=== PATIENT | female | born 1995 | race Caucasian/White ===

== ENCOUNTER 2018-08-26 21:18 | Emergency (ER) | payer MEDICAID, SELFPAY ==
[2018-08-26 21:24] VITALS: BP 138/85; PULSE 100; RESP 16; TEMP 36.7; O2SAT 100
--- NOTE | 2018-08-26 21:30 | W.ED.GENAD ---
Discharge Plan Disposition Patient Disposition: HOME Condition: Good Discharge Details Chief Complaint: DentalOral Clinical Impression: Abscess, dental Primary Care Provider: Navi Bello ED Provider: Navi Bosch [place] Meds and New Rx's Prescriptions: Continued fluoxetine [Prozac] 40 mg Capsule 40 mg PO DAILY RF: 0 ibuprofen 800 mg Tablet 800 mg PO TID-QID PRNRF: 0 clindamycin HCl 150 mg Capsule 450 mg PO TID Qty: 45 RF: 0 Discontinued clindamycin HCl 150 mg Capsule 150 mg PO QID RF: 0 Discharge Instructions Instructions: Dental Abscess (ED) Additional Instructions: Please take 1 g of Tylenol alternating with 600-800 mg of ibuprofen every 4 hours. Take antibiotic 3 tablets (450 mg ) 3 times a day. Contact your oral surgeon on Wednesday to discuss your procedure scheduled for Wednesday. Return to ED over the weekend if you spike any fevers, have increasing facial pain or swelling, difficulty breathing, inability to swallow. Medical Decision Making Patient here with dental abscess that has formed gingival abscess and facial swelling. She is afebrile. She is not in distress but is uncomfortable. Discussed attempting numbing the area with topical benzocaine, needle aspiration of abscess as well as dental block with bupivacaine. She is agreeable to this. Benzocaine topical applied. Attempt at aspiration of abscess unsuccessful because of pain. Multiple attempts at dental block also unsuccessful due to pain and patient not tolerating. Discussed giving her a dose of IM morphine to help with pain and anxiety. She agreed to this. More of the benzocaine topical applied. Another attempt at dental block with bupivacaine done. This time able to get about 1/2 cc in. After waiting approximately 15 minutes attempted further block so that we could drain abscess. Patient unable to tolerate and ultimately refused further attempts at dental block or abscess drainage. We discussed risk of not draining abscess. There is spontaneous drainage from the tooth socket. However, there does continue to be a pocket of fluctuance in the upper gingival area. Hopefully, this will drain on its own as she at this point will not tolerate further attempts at intervention. Will increase her clindamycin from 150 mg every 6 hours to 450 mg 3 times a day. Use acetaminophen alternating with ibuprofen for pain. Contact her oral surgeon Wednesday for further instructions on whether procedure can occur Wednesday or not. Return to ED for spiking fevers, increasing pain and swelling of the face, difficulty breathing, inability to swallow. HPI General Mode of arrival: ambulatory. Date/Time Provider Initiated Documentation: 08/26/18 21:28. Limitations to Documentation: no limitations. Information obtained by: patient. HPI Narrative: Patient presents with increasing facial pain, gum swelling related to dental infection. She was seen at [facility] yesterday and started on clindamycin. She has subsequently developed an abscess in the upper right maxillary area. She has pain up into her face and nose. She is due to have surgery next week to have all of her teeth removed. She developed this infection prior to that happening and is concerned that she is not going to be able to have the procedure. She came here for reevaluation and abscess drainage. Related Data Home Medications Medication Instructions Recorded Confirmed clindamycin HCl 450 mg PO TID #45 cap 08/26/18 fluoxetine [Prozac] 40 mg PO DAILY 08/26/18 08/26/18 ibuprofen 800 mg PO TID-QID PRN 08/26/18 08/26/18 Previous Rx's Medication Instructions Recorded clindamycin HCl 450 mg PO TID #45 cap 08/26/18 Allergies Allergy/AdvReac Type Severity Reaction Status Date / Time No Known Allergies Allergy Unverified 08/26/18 21:26 General Stated Complaint: DentalOral DEQUAN: 4 Review of Systems Review of Systems As documented in HPI otherwise negative as below. Const: no fever, chills, weakness Resp: no cough, SOB, pleuritic pain CV: no CP, diaphoresis, edema, syncope GI: no abdominal pain, nausea, vomiting, diarrhea Neuro: no headache, numbness, focal weakness, confusion [facility] Medical History Dental abscess (Acute) Anxiety (Chronic) Surgical History History of placement of ear tubes (Acute) History of tubal ligation (Chronic) Social History Smoking/Tobacco Use Status: Current every day Alcohol Intake: current Drug use: Daily Substance use type: marijuana Additional Social history: pt is not alone to assess privately Exam Const General: cooperative and no acute distress Orientation: alert and oriented x3 HENMT Head: normocephalic and atraumatic General nose exam: external nose normal Face and sinus: no erythema, no fluctuance, no sinus tenderness and tenderness on the right maxilla (with associated swelling) Teeth and gingiva: gingiva abnormal with purulent discharge (abscess with drainage right upper incisor/lateral incisor area) and poor dentition Throat: posterior oropharynx normal Neck Neck: trachea midline, supple and no anterior neck swelling Skin General skin exam: no erythema Course Vital Signs Temperature 98.1 F 08/26/18 21:24 Pulse 100 H 08/26/18 21:24 Respiratory Rate 16 08/26/18 21:24 Blood Pressure 138/85 08/26/18 21:24 Pulse Oximetry 100 08/26/18 21:24 Temperature 98.1 F 08/26/18 21:24 Temperature Source Skin 08/26/18 21:24 Pulse 100 H 08/26/18 21:24 Respiratory Rate 16 08/26/18 21:24 Respiratory Effort Non-Labored 08/26/18 21:25 Blood Pressure 138/85 08/26/18 21:24 Pulse Oximetry 100 08/26/18 21:24 Pain Level 10 08/26/18 21:24
--- NOTE | 2018-08-26 21:34 | ED.GENADUL_ITS ---
Discharge Plan Disposition Patient Disposition: HOME Condition: Good Discharge Details Chief Complaint: DentalOral Clinical Impression: Abscess, dental Primary Care Provider: Navi Bello ED Provider: Navi Bosch [place] Meds and New Rx's Prescriptions: Continued fluoxetine [Prozac] 40 mg Capsule 40 mg PO DAILY RF: 0 ibuprofen 800 mg Tablet 800 mg PO TID-QID PRNRF: 0 clindamycin HCl 150 mg Capsule 450 mg PO TID Qty: 45 RF: 0 Discontinued clindamycin HCl 150 mg Capsule 150 mg PO QID RF: 0 Discharge Instructions Instructions: Dental Abscess (ED) Additional Instructions: Please take 1 g of Tylenol alternating with 600-800 mg of ibuprofen every 4 hours. Take antibiotic 3 tablets (450 mg ) 3 times a day. Contact your oral surgeon on Wednesday to discuss your procedure scheduled for Wednesday. Return to ED over the weekend if you spike any fevers, have increasing facial pain or swelling, difficulty breathing, inability to swallow. Medical Decision Making Patient here with dental abscess that has formed gingival abscess and facial swelling. She is afebrile. She is not in distress but is uncomfortable. Discussed attempting numbing the area with topical benzocaine, needle aspiration of abscess as well as dental block with bupivacaine. She is agreeable to this. Benzocaine topical applied. Attempt at aspiration of abscess unsuccessful because of pain. Multiple attempts at dental block also unsuccessful due to pain and patient not tolerating. Discussed giving her a dose of IM morphine to help with pain and anxiety. She agreed to this. More of the benzocaine topical applied. Another attempt at dental block with bupivacaine done. This time able to get about 1/2 cc in. After waiting approximately 15 minutes attempted further block so that we could drain abscess. Patient unable to tolerate and ultimately refused further attempts at dental block or abscess drainage. We discussed risk of not draining abscess. There is spontaneous drainage from the tooth socket. However, there does continue to be a pocket of fluctuance in the upper gingival area. Hopefully, this will drain on its own as she at this point will not tolerate further attempts at intervention. Will increase her clindamycin from 150 mg every 6 hours to 450 mg 3 times a day. Use acetaminophen alternating with ibuprofen for pain. Contact her oral surgeon Wednesday for further instructions on whether procedure can occur Wednesday or not. Return to ED for spiking fevers, increasing pain and swelling of the face, difficulty breathing, inability to swallow. HPI General Mode of arrival: ambulatory . Date/Time Provider Initiated Documentation: 08/26/18 21:28 . Limitations to Documentation: no limitations . Information obtained by: patient . HPI Narrative: Patient presents with increasing facial pain, gum swelling related to dental infection. She was seen at [facility] yesterday and started on clindamycin. She has subsequently developed an abscess in the upper right maxillary area. She has pain up into her face and nose. She is due to have surgery next week to have all of her teeth removed. She developed this infection prior to that happening and is concerned that she is not going to be able to have the procedure. She came here for reevaluation and abscess drainage. Related Data Home Medications Medication Instructions Recorded Confirmed clindamycin HCl 450 mg PO TID #45 cap 08/26/18 fluoxetine [Prozac] 40 mg PO DAILY 08/26/18 08/26/18 ibuprofen 800 mg PO TID-QID PRN 08/26/18 08/26/18 Previous Rx's Medication Instructions Recorded clindamycin HCl 450 mg PO TID #45 cap 08/26/18 Allergies Allergy/AdvReac Type Severity Reaction Status Date / Time No Known Allergies Allergy Unverified 08/26/18 21:26 General Stated Complaint: DentalOral DEQUAN: 4 Review of Systems Review of Systems As documented in HPI otherwise negative as below. Const: no fever, chills, weakness Resp: no cough, SOB, pleuritic pain CV: no CP, diaphoresis, edema, syncope GI: no abdominal pain, nausea, vomiting, diarrhea Neuro: no headache, numbness, focal weakness, confusion [facility] Medical History Dental abscess (Acute) Anxiety (Chronic) Surgical History History of placement of ear tubes (Acute) History of tubal ligation (Chronic) Social History Smoking/Tobacco Use Status: Current every day Alcohol Intake: current Drug use: Daily Substance use type: marijuana Additional Social history: pt is not alone to assess privately Exam Const General: cooperative and no acute distress Orientation: alert and oriented x3 HENMT Head: normocephalic and atraumatic General nose exam: external nose normal Face and sinus: no erythema, no fluctuance, no sinus tenderness and tenderness on the right maxilla (with associated swelling) Teeth and gingiva: gingiva abnormal with purulent discharge (abscess with drainage right upper incisor/lateral incisor area) and poor dentition Throat: posterior oropharynx normal Neck Neck: trachea midline, supple and no anterior neck swelling Skin General skin exam: no erythema Course Vital Signs Temperature 98.1 F 08/26/18 21:24 Pulse 100 H 08/26/18 21:24 Respiratory Rate 16 08/26/18 21:24 Blood Pressure 138/85 08/26/18 21:24 Pulse Oximetry 100 08/26/18 21:24 Temperature 98.1 F 08/26/18 21:24 Temperature Source Skin 08/26/18 21:24 Pulse 100 H 08/26/18 21:24 Respiratory Rate 16 08/26/18 21:24 Respiratory Effort Non-Labored 08/26/18 21:25 Blood Pressure 138/85 08/26/18 21:24 Pulse Oximetry 100 08/26/18 21:24 Pain Level 10 08/26/18 21:24
[2018-08-26] MEDS: MORPHine 10 MG/ML VIAL 4 MG IM (22:19)
[2018-08-26] MEDS: Bupivacaine 0.5% Pres-Free 30 ML VIAL IJ (22:20)
[2018-08-26] MEDS: Benzocaine 20% Gel 30 GM JAR MM (22:20)
[2018-08-26 23:46] VITALS: BP 122/80; PULSE 85; RESP 12; TEMP 36.6; O2SAT 98
== END 2018-08-26 23:50 | disposition home or self-care (01) ==
PROVIDERS: Emergency Provider Emergency Medicine; PCP Internal Medicine
DX: K04.7 Periapical abscess without sinus (principal)
CPT/HCPCS: 96372; 99284; J2270

== ENCOUNTER 2018-11-29 06:46 | Emergency (ER) | payer MEDICAID, SELFPAY ==
[2018-11-29 06:49] VITALS: BP 123/76; PULSE 110; RESP 18; TEMP 36.8; O2SAT 100
--- NOTE | 2018-11-29 07:00 | ED.GENADUL_ITS ---
Discharge Plan Disposition Patient Disposition: HOME Condition: Stable Discharge Details Chief Complaint: Nausea/Vomit/Diar Clinical Impression: Cholecystitis Primary Care Provider: Navi Bello ED Provider: Enma Walsh Home Meds and New Rx's Prescriptions: Continued fluoxetine [Prozac] 40 mg Capsule 40 mg PO DAILY RF: 0 ibuprofen 800 mg Tablet 800 mg PO TID-QID PRNRF: 0 No Action hydrocodone-acetaminophen 5-325 mg tablet 1 tab PO Q6H MDD 4 PRN (Reason: pain) Qty: 30 RF: 0 Discharge Instructions Instructions: Ciprofloxacin (By mouth), Metronidazole (By mouth), Ondansetron (By mouth), Cholecystitis (ED) Additional Instructions: Please return immediately to the emergency department if you develop any new or worsening symptoms or if you become otherwise concerned. It is extremely important that you call as soon as possible to make an appointment to be seen by surgery and follow-up for this is as we discussed, and also by your primary care doctor. Stand Alone Forms: Work Release Referrals: Maryellen Diez MD [ [facility] STAFF PHYSICIAN] - Navi Bello [Primary Care Provider] - Discharge Data Discharge Date/Time-TO BE ENTERED AT DEPARTURE: 11/29/18 14:03 Medical Decision Making <Og Aviles DO - Last Filed: 12/16/18 07:58> This is a 23-year-old female who presents with 2 complaints, cough for 1 week with productive yellow sputum, no fever chills. No hemoptysis or PE red flags. She also has nausea vomiting abdominal pain that started at 2 AM this morning, she has been unable to keep anything down. Pain is in the right lower quadrant right upper quadrant. No pelvic pain or tenderness, no vaginal discharge. She does have a history of a tubal ligation. test is negative. No concerning lung sounds on exam. Suspect mild bronchitis, less likely pneumonia. With the patient's abdominal pain though, gallbladder and appendix pathology is certainly on the differential. We will get a CT scan to rule out acute process, rehydrate, treat her pain, and reassess. At this time with no pelvic pain or tenderness, no vaginal discharge signs and symptoms appear inconsistent with severe pelvic pathology We are still currently pending laboratory and imaging work-up. The case will be signed out to my colleague Dr. Enma Walsh for final disposition. <Enma Walsh MD - Last Filed: 11/29/18 15:17> Patient signed out to me at time of shift change by Dr. Aviles with laboratory studies, CT results pending. Per radiology over the phone patient with gallstone, gallbladder wall thickening, pericholecystic fluid, also with partially collapsed right ovarian cyst and free fluid in the pelvis that does not appear to be blood. Radiology recommends ultrasound of the abdomen and pelvis for further delineation. On reassessment patient with mild tolerable pain in the right upper quadrant, taking p.o. without issue. Patient tender to palpation in the right upper quadrant with positive Garza sign, abdomen otherwise nontender to palpation. Radiology, ultrasound of the right upper quadrant shows gallbladder wall thickening, gallstone in the neck of the gallbladder, no pericholecystic fluid. Ultrasound of the pelvis limited, shows right ovarian cyst small amount of free fluid. I discussed patient presentation results with Dr. Diez of surgery, who requested that patient be managed as outpatient and seen in follow-up by her on with plan for surgery in 1 week. She states that her office will call patient to schedule outpatient follow-up on . Dr. Diez requested short course of Percocet for pain in addition to Zofran. Patient with acute uncomplicated cholecystitis, outpatient management is appropriate. Patient feels that her pain and nausea is manageable as outpatient. We will plan for Cipro Flagyl. EKG performed given potential for QT prolongation, QT normal. I had a lengthy discussion with the patient regarding return to emergency department precautions, importance of outpatient follow-up with surgery on as discussed, safe opiate use, home care. Patient verbalized understanding the plan was amenable. She understands that she should return immediately to the emergency department should her condition worsen or change in anyway. Patient was discharged home with clear plan for outpatient follow-up. All questions were answered. Medical Records Medical records reviewed: Yes I reviewed the patient's medical records. Imaging Data Radiologic Study: Attestation: I personally reviewed and interpreted this imaging study as follows: Radiologist's impression: ABDOMINAL AND PELVIC CT: 11/29 CT examination of the abdomen and pelvis was performed with a bolus infusion of 100 cc Omnipaque 350. Images obtained through the lung bases are unremarkable. Liver and spleen are unremarkable in appearance. There are gallstones and there is a question of gallbladder wall thickening and small pericholecystic fluid collection raising the possibility of acute cholecystitis. No biliary dilatation seen. Pancreas is unremarkable in appearance. Spleen appears normal. Adrenals and kidneys are unremarkable. No significant abdominal wall hernia seen. Appendix is visualized in the right lower quadrant and appears normal. There is an apparent partially collapsed cyst of the right ovary measuring about 26 mm in diameter with small to moderate quantity of free pelvic fluid consistent with leaking or ruptured cyst. The left ovary is grossly unremarkable by CT criteria. No evidence of diverticulitis or bowel obstruction. CONCLUSION: 1. Cholelithiasis with question of acute cholecystitis 2. Findings consistent with leaking/ruptured partially collapsed right ovarian cyst. ABDOMINAL ULTRASOUND: 11/29/18 The liver parenchyma is normal in appearance. Note is made of gallstone in the gallbladder neck. Gallbladder wall is mildly thickened at 3-4 mm. No gross pericholecystic fluid collection seen. There is a positive sonographic Garza's sign. CONCLUSION: Limited right upper quadrant ultrasound shows cholelithiasis, positive sonographic Garza's sign and borderline to mild gallbladder wall thickening. No biliary dilatation seen. PELVIC ULTRASOUND: 11/29/18 The patient was unable to tolerate transvaginal scanning. Transabdominal scanning shows 17 mm complex partially collapsed right ovarian cyst corresponding with the findings on CT earlier today. There is a small quantity of free pelvic fluid. Uterus and left ovary are unremarkable in appearance. CONCLUSION: Findings consistent with collapsed right ovarian cyst as described above. Lab Data Lab results reviewed: Yes I reviewed the patient's lab results. Laboratory Tests Range/Units 11/29/18 11/29/18 11/29/18 07:05 07:19 07:19 WBC (4.4-10.8) k/cumm 5.11 RBC (4.00-5.20) m/cumm 4.34 Hgb (12.0-15.5) g/dL 12.1 Hct (36.0-46.0) % 36.9 MCV (80-95) fL 85.0 MCH (27.0-33.0) pg 27.9 MCHC (32.0-36.0) g/dL 32.8 RDW (11.7-14.6) % 13.2 Plt Count (130-400) x1000/uL 219 MPV (8.0-11.0) fL 9.4 Immature Gran % 0.2 Neutrophils % 50.9 Lymphocytes % 37.8 Monocytes % 7.6 Eosinophils % 3.3 Basophils % 0.2 Absolute Neutrophils (1.2-6.7) k/cumm 2.60 Absolute Lymphocytes (1.2-3.4) k/cumm 1.93 Absolute Monocytes (0.11-0.7) k/cumm 0.39 Absolute Eosinophils (0.0-0.7) k/cumm 0.17 Absolute Basophils (0.0-0.2) k/cumm 0.01 Sodium (136-145) mmol/L 139 Potassium (3.5-5.1) mmol/L 3.6 Chloride (98-107) mmol/L 103 Carbon Dioxide (21.0-32.0) mmol/L 23.6 Anion Gap (3-11) mmol/L 12.4 H BUN (7-18) mg/dL 11 Creatinine (0.55-1.02) mg/dL 0.84 Estimated GFR/1.73 m2 (mL/min/1.73m2) >= 60.00 Glucose (70-100) mg/dL 75 Calcium (8.5-10.1) mg/dL 8.9 Total Bilirubin (0.2-1.0) mg/dL 0.2 AST (15-37) U/L 8 L ALT (12-78) U/L 11 L Alkaline Phosphatase (46-116) U/L 58 Total Protein (6.4-8.2) g/dL 7.2 Albumin (3.4-5.0) g/dL 3.9 Lipase (73-393) U/L 164 Urine Color (Yellow) Yellow Urine Clarity (Clear) Clear Urine pH (5-8) 7.0 Ur Specific [place] (1.005-1.025) 1.020 Urine Protein (Negative) mg/dL Negative Urine Ketones (Negative) mg/dL Negative Urine Blood (Negative) Negative Urine Nitrite (Negative) Negative Urine Bilirubin (Negative) Negative Urine Urobilinogen (Up TO 0.2) EU/dL 0.2 Ur Leukocyte Esterase (Negative) Negative Urine Glucose (Negative) mg/dL Negative ECG Data Attestation: I personally reviewed and interpreted this ECG (s) as follows: Interpretation: EKG shows sinus rhythm 63, normal axis, no acute ischemic changes, normal QT interval HPI <Og Aviles DO - Last Filed: 12/16/18 07:58> General Date/Time Provider Initiated Documentation: 11/29/18 06:52 . HPI Narrative: This is a 23-year-old female with a past medical history of a tubal ligation tobacco abuse poor dentition, who presents today for evaluation of abdominal pain and cough. Regards to the cough she has had a cough that is been productive with yellow sputum for the last week. She denies any significant chest pain or tenderness. She denies severe shortness of breath. She denies any hemoptysis, or history of blood clot. She denies any fever chills. She does admit to some runny nose and congestion in conjunction with it. She also complains of abdominal pain, particularly in the right lower and right upper quadrant, with associated vomiting x3 starting at 2 AM this morning. She denies any hematemesis, or diarrhea. She denies any dysuria, hematuria or increase in urinary frequency, she denies any recent oral intake secondary to the nausea and vomiting. She denies any vaginal discharge, pelvic pain or pelvic tenderness. She has no other complaints at this time. No other modifying factors. She denies any IV or illicit drug use, pertinent family history. She does smoke regularly. Related Data Home Medications Medication Instructions Recorded Confirmed fluoxetine [Prozac] 40 mg PO DAILY 08/26/18 12/13/18 ibuprofen 800 mg PO TID-QID PRN 08/26/18 12/13/18 hydrocodone 5 mg-acetaminophen 325 1 tab PO Q6H PRN #30 tab MDD 4 12/01/18 12/13/18 mg tablet Previous Rx's Medication Instructions Recorded hydrocodone 5 mg-acetaminophen 325 1 tab PO Q6H PRN #30 tab MDD 4 12/01/18 mg tablet Allergies Allergy/AdvReac Type Severity Reaction Status Date / Time No Known Allergies Allergy Verified 12/04/18 00:44 General Stated Complaint: Nausea/Vomit/Diar DEQUAN: 3 Review of Systems <Og Aviles DO - Last Filed: 12/16/18 07:58> Review of Systems All systems reviewed & are unremarkable except as noted in HPI and below PFSH <Og Aviles DO - Last Filed: 12/16/18 07:58> Social History Smoking/Tobacco Use Status: Current every day Tobacco Type: cigarettes Alcohol Intake: current Alcohol Intake frequency: holidays/special occasions only Drug use: Daily Substance use type: marijuana Do you feel safe at home: Yes Do you feel safe in your relationship?: Yes Additional Social history: pt is not alone to assess privately Exam <Og Aviles DO - Last Filed: 12/16/18 07:58> Narrative Exam Narrative: 1.Const: Well-nourished, Well-developed, appearing stated age 2.Eyes: PERRL, no conjunctival injection, and symmetrical lids. 3.ENT: Atraumatic external nose and ears. Moist MM. Neck: Symmetric, trachea midline, No thyromegaly. 4.CVS: +S1/S2, No murmurs or gallops. Peripheral pulses 2+ and equal in all extremities. Brisk capillary refill in all extremities. 5.RESP: Unlabored respiratory effort. Clear to auscultation bilaterally. No wheezes rales or rhonchi 6.GI: Soft, nondistended no hepatosplenomegaly. Mild right lower quadrant and right upper quadrant abdominal tenderness. Pain at both McBurney's point, negative Garza sign. Negative obturator and psoas sign. No CVA tenderness. No pelvic tenderness on exam. 7.MSK: Normocephalic/Atraumatic, Extremities w/o deformity or ttp No cyanosis or clubbing, Normal movement of all extremities 8.Skin: Warm, Dry. No rashes or lesions. 9.Neuro: personal development educator II-XII grossly intact. Sensation grossly intact, no focal neurologic deficits. 10.Psych: (AAO) x3. Appropriate mood and affect Course <Og Aviles DO - Last Filed: 12/16/18 07:58> Vital Signs Temperature 36.8 C 11/29/18 06:49 Pulse 110 H 11/29/18 06:49 Respiratory Rate 18 11/29/18 06:49 Blood Pressure 123/76 11/29/18 06:49 Pulse Oximetry 100 11/29/18 06:49 Temperature 36.8 C 11/29/18 06:49 Temperature Source Temporal Artery Scan 11/29/18 06:49 Pulse 110 H 11/29/18 06:49 Respiratory Rate 18 11/29/18 06:49 Blood Pressure 123/76 11/29/18 06:49 Blood Pressure Position Sitting 11/29/18 06:49 Pulse Oximetry 100 11/29/18 06:49 Oxygen Delivery Method Room Air 11/29/18 06:49 Oxygen Flow Rate 0 11/29/18 06:49 Sign Out <Og Aviles DO - Last Filed: 12/16/18 07:58> Sign Out Data: Sign Out Comment: Nausea, vomiting, cough. Pending laboratory work-up and CT imaging. Last updated by Og Aviles DO at 11/29/18 07:21
--- NOTE | 2018-11-29 07:09 | DI.CT_ITS ---
SYMPTOM/DIAGNOSIS; RLQ AND RUQ ABD PAIN, HX GALLSTONES ABDOMINAL AND PELVIC CT: 11/29 CT examination of the abdomen and pelvis was performed with a bolus infusion of 100 cc Omnipaque 350. Images obtained through the lung bases are unremarkable. Liver and spleen are unremarkable in appearance. There are gallstones and there is a question of gallbladder wall thickening and small pericholecystic fluid collection raising the possibility of acute cholecystitis. No biliary dilatation seen. Pancreas is unremarkable in appearance. Spleen appears normal. Adrenals and kidneys are unremarkable. No significant abdominal wall hernia seen. Appendix is visualized in the right lower quadrant and appears normal. There is an apparent partially collapsed cyst of the right ovary measuring about 26 mm in diameter with small to moderate quantity of free pelvic fluid consistent with leaking or ruptured cyst. The left ovary is grossly unremarkable by CT criteria. No evidence of diverticulitis or bowel obstruction. CONCLUSION: 1. Cholelithiasis with question of acute cholecystitis 2. Findings consistent with leaking/ruptured partially collapsed right ovarian cyst.
--- NOTE | 2018-11-29 07:09 | DI.RAD_ITS ---
SYMPTOM/DIAGNOSIS: COUGH X 1 WEEK. PA AND LATERAL CHEST: 11/29 The heart is normal in size. The lungs are clear. The mediastinal structures and pleura appear intact. CONCLUSION: Normal chest.
[2018-11-29 07:13] LABS: Bilirubin Negative (Negative); Blood Negative (Negative); Clarity Clear (Clear); Glucose Negative (Negative); Ketones Negative (Negative); Leukocyte Esterase Negative (Negative); Nitrite Negative (Negative); Urobilinogen 0.2 EU/dL (Up TO 0.2)
[2018-11-29] MEDS: Normal Saline 1,000 ML 1000 ML IV (07:20)
[2018-11-29] MEDS: Ondansetron 4 MG/2 ML VIAL IVP (07:20)
[2018-11-29] MEDS: Ketorolac 15 MG/ML VIAL IVP (07:25)
[2018-11-29 07:28] LABS: Abs Immature Grans 0.01 k/cumm (0.0-0.09); Absolute Basophil Count 0.01 k/cumm (0.0-0.2); Absolute Eosinophil Count 0.17 k/cumm (0.0-0.7); Absolute Lymphocyte Count 1.93 k/cumm (1.2-3.4); Absolute Monocyte Count 0.39 k/cumm (0.11-0.7); Basophils % 0.2; Eosinophils % 3.3; HCT 36.9 % (36.0-46.0); HGB 12.1 g/dL (12.0-15.5); Immature Grans % 0.2; Lymphocytes % 37.8; Mean Corp. HGB Concentration 32.8 g/dL (32.0-36.0); Mean Corpuscular Hemoglobin 27.9 pg (27.0-33.0); Mean Platelet Volume 9.4 fL (8.0-11.0); Monocytes % 7.6; Neutrophils % 50.9; Platelet Count 219 x1000/uL (130-400); RBC 4.34 m/cumm (4.00-5.20); RBC Distribution Width 13.2 % (11.7-14.6); White Blood Cell Count 5.11 k/cumm (4.4-10.8)
[2018-11-29 07:48] LABS: ALT 11 U/L (12-78); AST 8 U/L (15-37); Albumin 3.9 g/dL (3.4-5.0); Alkaline Phosphatase 58 U/L (46-116); Anion Gap 12.4 mmol/L (3-11); BUN 11 mg/dL (7-18); Bilirubin, Total 0.2 mg/dL (0.2-1.0); CO2 23.6 mmol/L (21.0-32.0); CREATININE 0.84 mg/dL (0.55-1.02); Calcium 8.9 mg/dL (8.5-10.1); Chloride 103 mmol/L (98-107); Glucose 75 mg/dL (70-100); Lipase 164 U/L (73-393); Potassium 3.6 mmol/L (3.5-5.1); Sodium 139 mmol/L (136-145); Total Protein 7.2 g/dL (6.4-8.2)
[2018-11-29] MEDS: Omnipaque 350 MG/ML 100 ML BTL IJ (08:31)
--- NOTE | 2018-11-29 08:41 | DI.US_ITS ---
SYMPTOM/DIAGNOSIS: RUQ, ABNORMAL GALLBLADDER ON CT ABDOMINAL ULTRASOUND: 11/29/18 The liver parenchyma is normal in appearance. Note is made of gallstone in the gallbladder neck. Gallbladder wall is mildly thickened at 3-4 mm. No gross pericholecystic fluid collection seen. There is a positive sonographic Garza's sign. CONCLUSION: Limited right upper quadrant ultrasound shows cholelithiasis, positive sonographic Garza's sign and borderline to mild gallbladder wall thickening. No biliary dilatation seen.
--- NOTE | 2018-11-29 08:41 | DI.US_ITS ---
SYMPTOM/DIAGNOSIS: RIGHT OVARIAN CYST ON CT PELVIC ULTRASOUND: 11/29/18 The patient was unable to tolerate transvaginal scanning. Transabdominal scanning shows 17 mm complex partially collapsed right ovarian cyst corresponding with the findings on CT earlier today. There is a small quantity of free pelvic fluid. Uterus and left ovary are unremarkable in appearance. CONCLUSION: Findings consistent with collapsed right ovarian cyst as described above.
[2018-11-29 10:06] VITALS: BP 102/61; PULSE 61; RESP 17; O2SAT 97
[2018-11-29 12:11] VITALS: BP 105/68; PULSE 64; RESP 14; TEMP 36.6; O2SAT 99
[2018-11-29 13:38] VITALS: BP 98/65; PULSE 74; RESP 16; TEMP 36.8; O2SAT 97
[2018-11-29] MEDS: metroNIDAZOLE 500 MG TAB PO (13:43)
[2018-11-29] MEDS: Ciprofloxacin 500 MG TAB PO (13:44)
== END 2018-11-29 14:03 | disposition home or self-care (01) ==
PROVIDERS: Student in an Organized Health Care Education/Training Program; Emergency Provider Student in an Organized Health Care Education/Training Program; PCP Internal Medicine
DX: K81.0 Acute cholecystitis (principal)
CPT/HCPCS: 36415; 80053; 83690; 93005; 96361; 96374; 96375; 99285; 71046; 74177; 76705; 76856; 81003; 85025; 93010; J1885; J2405; J3490

== ENCOUNTER 2018-12-04 00:36 | Inpatient (IN) | payer MEDICAID, SELFPAY ==
[2018-12-04] VITALS (12 sets, daily range): BP systolic 80–112; BP diastolic 46–65; PULSE 60–87; RESP 14–19; TEMP 36.3–37; O2SAT 97–100
--- NOTE | 2018-12-04 00:42 | W.ED.GENAD ---
Discharge Plan Disposition Patient Disposition: [facility] INPATIENT Condition: Fair Discharge Details Chief Complaint: Abd Prob Clinical Impression: Abdominal pain, right upper quadrant, Cholelithiasis Primary Care Provider: Navi Bello ED Provider: Navi Bosch [place] Meds and New Rx's Prescriptions: No Action hydrocodone-acetaminophen 5-325 mg tablet 1 tab PO Q6H MDD 4 PRN (Reason: pain) Qty: 30 RF: 0 fluoxetine [Prozac] 40 mg Capsule 40 mg PO DAILY RF: 0 ibuprofen 800 mg Tablet 800 mg PO TID-QID PRNRF: 0 metronidazole [Flagyl] 500 mg tablet 500 mg PO BID Qty: 14 RF: 0 ciprofloxacin HCl 500 mg tablet 500 mg PO BID Qty: 14 RF: 0 Medical Decision Making Patient presenting with worsening right upper quadrant pain. She is due for cholecystectomy on Wednesday. She reports worsening pain tonight with no response to nonsteroidals or opiates at home. She is afebrile. She looks like she feels unwell but does not appear toxic. We will establish IV and give fluids, antiemetic, pain medication. Repeat laboratory studies. Discuss with surgery. 01:30 - Patient's labs remain normal. Nausea is gone but pain is unchanged. Ordered for 2nd dose of morphine. Discussed with Dr. Diez. If unable to get control of pain, can admit to her service. Will try dose of toradol in addition to the morphine. 02:00 - Patient doing a little better with pain but does not feel she can go home. Still very uncomfortable. Patient to be admitted to Dr. Diez for fluids, pain control. Keep NPO for now. Medical Records Medical records reviewed: Yes I reviewed the patient's medical records. Lab Data Lab results reviewed: Yes I reviewed the patient's lab results. HPI General Mode of arrival: ambulatory. Date/Time Provider Initiated Documentation: 12/04/18 00:39. Limitations to Documentation: no limitations. Information obtained by: patient, RN notes reviewed and old records reviewed. HPI Narrative: Patient presents to ED with worsening right upper quadrant abdominal pain. Patient was seen earlier this week for same. Diagnosed with cholelithiasis/cholecystitis. Has since followed up with surgeon, Dr. Diez. Patient due to have cholecystectomy on Wednesday. She is currently on Cipro and Flagyl. Pain got worse tonight around 8. She took Aleve. That did not help. She took [place]. That did not help. Pain is getting worse with radiation to the back and nausea. She has no fever or chills. She has no vomiting. However, she is very uncomfortable and returns to ED as previously instructed for worsening pain. Related Data Home Medications Medication Instructions Recorded Confirmed fluoxetine [Prozac] 40 mg PO DAILY 08/26/18 12/04/18 ibuprofen 800 mg PO TID-QID PRN 08/26/18 12/04/18 ciprofloxacin HCl 500 mg PO BID #14 tab 11/29/18 12/04/18 metronidazole [Flagyl] 500 mg PO BID #14 tab 11/29/18 12/04/18 hydrocodone 5 mg-acetaminophen 325 1 tab PO Q6H PRN #30 tab MDD 4 12/01/18 12/04/18 mg tablet Previous Rx's Medication Instructions Recorded ciprofloxacin HCl 500 mg PO BID #14 tab 11/29/18 metronidazole [Flagyl] 500 mg PO BID #14 tab 11/29/18 hydrocodone 5 mg-acetaminophen 325 1 tab PO Q6H PRN #30 tab MDD 4 12/01/18 mg tablet Allergies Allergy/AdvReac Type Severity Reaction Status Date / Time No Known Allergies Allergy Verified 12/04/18 00:44 General DEQUAN: 3 Review of Systems Review of Systems 03/06 Review of Systems completed and is negative except as stated above in HPI (Systems reviewed: Const, Eyes, ENT, Resp, CV, GI, , MSK, Skin, Neuro) PFSH Medical History Anxiety (Chronic) Surgical History History of placement of ear tubes (Acute) History of tubal ligation (Chronic) Social History Smoking/Tobacco Use Status: Current every day Tobacco Type: cigarettes Alcohol Intake: current Alcohol Intake frequency: holidays/special occasions only Drug use: Daily Substance use type: marijuana Do you feel safe at home: Yes Do you feel safe in your relationship?: Yes Additional Social history: pt is not alone to assess privately Exam Narrative Exam Narrative: Vitals: Afebrile with normal vitals. Const: WDWN female who appears ill but not toxic or in distress. HEENT: NC/AT. Normal facial exam. Eyes: Normal conjunctiva and sclera. Neck: Supple. Trachea midline. Lungs: Normal respiratory effort. Lungs are clear. Cor: RRR without murmur/gallop. Good radial pulses. GI: Soft and non-distended. Tender in the right upper quadrant with voluntary guarding. Neuro: A+O x 3. CN grossly in tact. Good strength and no focal deficit. Ext: No C/C/E. No deformity or tenderness. Skin: Warm and dry without rash.
[2018-12-04] MEDS: Ondansetron 4 MG/2 ML VIAL IVP ×2 (01:01→06:57)
[2018-12-04] MEDS: MORPHine 10 MG/ML VIAL 4 MG IVP (01:02)
[2018-12-04] MEDS: Lactated Ringers 1,000 ML 200 ML IV ×2 (01:02→06:57)
[2018-12-04 01:09] LABS: Abs Immature Grans 0.02 k/cumm (0.0-0.09); Absolute Basophil Count 0.02 k/cumm (0.0-0.2); Absolute Lymphocyte Count 2.67 k/cumm (1.2-3.4); Absolute Monocyte Count 0.79 k/cumm (0.11-0.7); Absolute Neutrophil Count 4.01 k/cumm (1.2-6.7); Basophils % 0.3; Eosinophils % 3.8; HCT 38.7 % (36.0-46.0); HGB 13.1 g/dL (12.0-15.5); Immature Grans % 0.3; Lymphocytes % 34.2; Mean Corp. HGB Concentration 33.9 g/dL (32.0-36.0); Mean Corpuscular Hemoglobin 28.2 pg (27.0-33.0); Mean Corpuscular Volume 83.4 fL (80-95); Mean Platelet Volume 9.4 fL (8.0-11.0); Monocytes % 10.1; Neutrophils % 51.3; Platelet Count 236 x1000/uL (130-400); RBC 4.64 m/cumm (4.00-5.20); RBC Distribution Width 13.7 % (11.7-14.6); White Blood Cell Count 7.81 k/cumm (4.4-10.8)
[2018-12-04 01:22] LABS: ALT 16 U/L (12-78); AST 15 U/L (15-37); Albumin 4.2 g/dL (3.4-5.0); Alkaline Phosphatase 63 U/L (46-116); Anion Gap 10.4 mmol/L (3-11); BUN 13 mg/dL (7-18); Bilirubin, Total 0.1 mg/dL (0.2-1.0); CO2 24.6 mmol/L (21.0-32.0); CREATININE 0.76 mg/dL (0.55-1.02); Calcium 9.2 mg/dL (8.5-10.1); Chloride 101 mmol/L (98-107); Glucose 95 mg/dL (70-100); Lipase 145 U/L (73-393); Potassium 4.2 mmol/L (3.5-5.1); Sodium 136 mmol/L (136-145); Total Protein 7.4 g/dL (6.4-8.2)
[2018-12-04] MEDS: Ketorolac 15 MG/ML VIAL IVP (01:34)
[2018-12-04] MEDS: Normal Saline Flush 10 ML SYR IVP ×5 (02:56→17:10)
[2018-12-04] MEDS: MORPHine 2 MG/ML SYR 4 MG IVP ×3 (02:57→22:22)
[2018-12-04] MEDS: Ketorolac 30 MG/ML VIAL IVP ×2 (10:57→17:09)
[2018-12-04] MEDS: FLUoxetine 20 MG CAP 40 MG PO (10:57)
[2018-12-04] MEDS: PIPERACILLIN/TAZO 3.375 GM in Normal Saline 50 ML IVPB ×2 (11:36→17:10)
--- NOTE | 2018-12-04 12:04 | HPE_ITS ---
Date of service: 12/04/18 Time of Service: 10:15 Assessment and Plan (1) Cholelithiases: Current visit: Yes Status: Acute The patient will be admitted for IV fluids, antiemetics and pain control. We will plan for surgery tomorrow. She is familiar with the procedure and risks. She can have a clear liquid diet today and be n.p.o. after midnight. As precaution she will be kept on IV antibiotics. Qualifiers: Cholecystitis presence: with cholecystitis History of Present Illness Narrative: This 23-year-old woman is scheduled for laparoscopic cholecystectomy on 12/06/2018 for biliary colic. Last night she experienced worsening right upper quadrant pain and intractable nausea. She did not have vomiting. She presented to the emergency department and due to ongoing requirements for pain medication and antiemetics was admitted to the hospital. This morning she reports that her pain is controlled with medication. She continues to have nausea and does not feel that she can adequately take in fluids at home. Review of Systems Constitutional Denies fatigue and Denies headache(s) Eyes Denies change in vision ENT Denies headache(s) and Denies neck mass Cardiovascular Denies chest pain, Denies edema, Denies palpitations and Denies dyspnea Respiratory Denies cough, Denies dyspnea and Denies wheezing Gastrointestinal Denies hematochezia and Denies change in bowel habits Genitourinary Denies abnormal vaginal bleeding and Denies dysuria Musculoskeletal Denies joint swelling Integumentary/Breasts Denies new lesions and Denies rash Neurologic Denies confusion, Denies headache(s) and Denies focal weakness Psychiatric Reports system reviewed and no additional complaints, except as docu and Denies confusion Endocrine Denies fatigue and Denies palpitations Hematologic/Lymphatic Denies easy bleeding and Denies lymphadenopathy Allergic/Immunologic Denies wheezing ON LICENSE OF [facility] Medical History Anxiety (Chronic) Surgical History History of placement of ear tubes (Acute) History of tubal ligation (Chronic) Social History Smoking/Tobacco Use Status: Current every day Tobacco Type: cigarettes Alcohol Intake: current Alcohol Intake frequency: holidays/special occasions only Drug use: Daily Substance use type: marijuana Do you feel safe at home: Yes Do you feel safe in your relationship?: Yes Additional Social history: pt is not alone to assess privately Meds Home Medications Medication Instructions Recorded Confirmed Type fluoxetine [Prozac] 40 mg PO DAILY 08/26/18 12/04/18 History ibuprofen 800 mg PO TID-QID PRN 08/26/18 12/04/18 History ciprofloxacin HCl 500 mg PO BID #14 tab 11/29/18 12/04/18 Rx metronidazole [Flagyl] 500 mg PO BID #14 tab 11/29/18 12/04/18 Rx hydrocodone 5 mg-acetaminophen 325 1 tab PO Q6H PRN #30 tab MDD 4 12/01/18 12/04/18 Rx mg tablet Allergies Allergy/AdvReac Type Severity Reaction Status Date / Time No Known Allergies Allergy Verified 12/04/18 00:44 Exam Const Nutritional Appearance: well nourished Orientation: oriented x3 HENMT Head: normal to inspection Eyes Sclera: sclerae normal Pupils: PERRL Neck Neck: no lymphadenopathy Thyroid: thyroid normal Carotids: no bruits Resp Effort & Inspection: normal respiratory effort Auscultation: clear to auscultation bilaterally and no wheezes Cardio Rate: regular rate Rhythm: regular rhythm Pulses: dorsalis pedis pulses present GI Inspection: non-distended Palpation: soft, no hepatosplenomegaly and no hernias Other: Tender RUQ, gallbladder not palpable Skin General skin exam: no rashes or lesions noted Neuro General: alert Cognition: normal cognition Extrem General: normal to inspection Psych Affect: normal affect Attitude: cooperative Results Labs : 12/04/18 00:58 12/04/18 00:58 Laboratory Results - last 24 hr 12/04/18 12/04/18 00:58 00:58 WBC 7.81 RBC 4.64 Hgb 13.1 Hct 38.7 MCV 83.4 MCH 28.2 MCHC 33.9 RDW 13.7 Plt Count 236 MPV 9.4 Immature Gran % 0.3 Neutrophils % 51.3 Lymphocytes % 34.2 Monocytes % 10.1 Eosinophils % 3.8 Basophils % 0.3 Absolute Neutrophils 4.01 Absolute Lymphocytes 2.67 Absolute Monocytes 0.79 H Absolute Eosinophils 0.30 Absolute Basophils 0.02 Sodium 136 Potassium 4.2 Chloride 101 Carbon Dioxide 24.6 Anion Gap 10.4 BUN 13 Creatinine 0.76 Estimated GFR/1.73 m2 >= 60.00 Glucose 95 Calcium 9.2 Total Bilirubin 0.1 L AST 15 ALT 16 Alkaline Phosphatase 63 Total Protein 7.4 Albumin 4.2 Lipase 145 Last Vital Signs Temp 97.3 F L 12/04/18 07:27 Pulse 69 12/04/18 07:27 Resp 18 12/04/18 07:27 BP 84/53 L 12/04/18 07:27 Pulse Ox 100 12/04/18 07:27
[2018-12-04] MEDS: Lactated Ringers 1,000 ML 125 ML IV (13:51)
[2018-12-04] MEDS: Lactated Ringers 250 ML 500 ML IV (20:39)
[2018-12-05] VITALS (13 sets, daily range): BP systolic 88–126; BP diastolic 56–82; PULSE 58–76; RESP 14–18; TEMP 36.5–37.2; O2SAT 96–100
[2018-12-05] MEDS: PIPERACILLIN/TAZO 3.375 GM in Normal Saline 50 ML IVPB ×3 (00:27→12:00)
[2018-12-05] MEDS: Lactated Ringers 1,000 ML 125 ML IV ×4 (02:48→23:02)
[2018-12-05] MEDS: Normal Saline Flush 10 ML SYR IVP ×4 (06:01→17:46)
[2018-12-05] MEDS: MORPHine 2 MG/ML SYR 4 MG IVP ×5 (06:01→17:45)
[2018-12-05] MEDS: FLUoxetine 20 MG CAP 40 MG PO (08:08)
--- NOTE | 2018-12-05 08:37 | W.PM.PROGNOT ---
Date of Service Date of service: 12/05/18 Time of Service: 08:37 Assessment and Plan (1) Cholelithiases: Current visit: Yes Status: Acute To OR this am for lap calvin. Risks per consent Patient has no questions Qualifiers: Cholecystitis presence: with cholecystitis Subjective Interval history since last seen: Notes slight nausea. Pain is controlled No new complaints Exam Narrative Exam Narrative: Alert No acute distress Lungs CTA Heart RRR Objective Objective Clinical Data: Vital Signs Temperature 98.2 F 12/05/18 04:15 Temperature Source Skin 12/05/18 04:15 Pulse 62 12/05/18 04:15 Pulse Rhythm Regular 12/05/18 00:30 Respiratory Rate 18 12/05/18 04:15 Respiratory Effort 12/05/18 00:30 Respiratory Depth Normal 12/05/18 00:30 Respiratory Pattern Normal 12/05/18 00:30 Blood Pressure 88/56 L 12/05/18 04:15 Blood Pressure Position Sitting 12/04/18 00:41 Pulse Oximetry 98 12/05/18 04:15 Oxygen Delivery Method Room Air 12/05/18 04:15 Oxygen Flow Rate 0 12/05/18 04:15 Pain Level 5 12/05/18 07:01 Comment 12/05/18 04:15 Intake & Output 12/04/18 12/04/18 12/05/18 11:59 23:59 11:59 Intake Total 1050.5 / 3440.5 2390 / 3440.5 816.667 / 816.667 Output Total 450 / 950 500 / 950 300 / 300 Balance 600.5 / 2490.5 1890 / 2490.5 516.667 / 516.667 Weight 139 lb 12.369 oz Intake: IV 1050.5 / 2150.5 1100 / 2150.5 816.667 / 816.667 Oral 0 / 1290 1290 / 1290 0 / 0 Output: Urine 450 / 950 500 / 950 300 / 300 Other: Urine Color Yellow Yellow Yellow Urine Appearance Clear Clear Clear Urine Odor Normal Normal Comment lt yellow Voiding Methods Toilet Toilet Toilet Laboratory Results WBC 7.81 k/cumm (4.4-10.8) 12/04/18 00:58 RBC 4.64 m/cumm (4.00-5.20) 12/04/18 00:58 Hgb 13.1 g/dL (12.0-15.5) 12/04/18 00:58 Hct 38.7 % (36.0-46.0) 12/04/18 00:58 MCV 83.4 fL (80-95) 12/04/18 00:58 MCH 28.2 pg (27.0-33.0) 12/04/18 00:58 MCHC 33.9 g/dL (32.0-36.0) 12/04/18 00:58 RDW 13.7 % (11.7-14.6) 12/04/18 00:58 Plt Count 236 x1000/uL (130-400) 12/04/18 00:58 MPV 9.4 fL (8.0-11.0) 12/04/18 00:58 Immature Gran % 0.3 12/04/18 00:58 51.3 12/04/18 00:58 34.2 12/04/18 00:58 10.1 12/04/18 00:58 3.8 12/04/18 00:58 0.3 12/04/18 00:58 Absolute Neutrophils 4.01 k/cumm (1.2-6.7) 12/04/18 00:58 Absolute Lymphocytes 2.67 k/cumm (1.2-3.4) 12/04/18 00:58 Absolute Monocytes 0.79 k/cumm (0.11-0.7) H 12/04/18 00:58 Absolute Eosinophils 0.30 k/cumm (0.0-0.7) 12/04/18 00:58 Absolute Basophils 0.02 k/cumm (0.0-0.2) 12/04/18 00:58 Sodium 136 mmol/L (136-145) 12/04/18 00:58 Potassium 4.2 mmol/L (3.5-5.1) 12/04/18 00:58 Chloride 101 mmol/L (98-107) 12/04/18 00:58 Carbon Dioxide 24.6 mmol/L (21.0-32.0) 12/04/18 00:58 10.4 mmol/L (3-11) 12/04/18 00:58 BUN 13 mg/dL (7-18) 12/04/18 00:58 0.76 mg/dL (0.55-1.02) 12/04/18 00:58 >= 60.00 (mL/min/1.73m2) 12/04/18 00:58 Glucose 95 mg/dL (70-100) 12/04/18 00:58 Calcium 9.2 mg/dL (8.5-10.1) 12/04/18 00:58 0.1 mg/dL (0.2-1.0) L 12/04/18 00:58 AST 15 U/L (15-37) 12/04/18 00:58 ALT 16 U/L (12-78) 12/04/18 00:58 63 U/L (46-116) 12/04/18 00:58 7.4 g/dL (6.4-8.2) 12/04/18 00:58 4.2 g/dL (3.4-5.0) 12/04/18 00:58 145 U/L (73-393) 12/04/18 00:58
--- NOTE | 2018-12-05 09:22 | GB_PTH ---
PATIENT: Shanita López LOC: [id number]#:[id number] AGE/SX: 23/F ROOM: RE12/05/[address]: Maryellen Diez MD : [id number] BED: A DIS: 12/06/2018 SPEC #: [id number] RECD: 12/05/18 12:52 STATUS: ALPHONSO REQ #: [id number] RITA: 12/05/18 09:[address]: Maryellen Diez DEPT: Surgical Specimen RECD BY: Halley Salmeron ENTERED: 12/05/18 12:52 SP TYPE: GB OTHR DR: Navi Bello Tissues: 1 - GALLBLADDER Procedures: GROSS AND MICRO LEVEL 3 Comments: [id number]
--- NOTE | 2018-12-05 10:05 | PDOC.CMIN ---
- If Service Date Differs Date of service: 12/05/18 Time of Service: 10:05 Care Management Initial Assess REASON FOR HOSPITALIZATION:: CXholelithiasis PAST MEDICAL HISTORY/PAST SURGICAL HISTORY:: Anxiety. History of placement of ear tubes. history of tubal ligation PREVIOUS FUNCTIONAL STATUS/SOCIAL/FAMILY SUPPORTS:: Shanita lives in an apartment in [place] with her and 3 children. 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 Her goal is to get a job at [employer]. Shanita is independent with all care and activities. CURRENT FUNCTIONAL STATUS:: Shanita was sitting up in bed when CM came to see her. Her was also present, dozing in the recliner. Shanita was pleasant and frienddly and answered questions readily. She had a laparoscopic cholecystecyomy this morning and states she is still having some pain. The plan is for her to be discharged home in the morning. ADVANCE DIRECTIVES:: None on file at [facility] and not interested at this time. Has patient been provided with information about the portal?: No Did the patient sign up for the portal?: No CODE STATUS:: Full Code INSURANCE COVERAGE / FINANCIAL ISSUES:: Medicaid Vt CURRENT HOME/COMMUNITY SERVICES/EQUIPMENT:: none PRIMARY CARE PHYSICIAN:: Navi Bello POTENTIAL DISCHARGE NEEDS:: folllow up with surgeon and discharge plan of care. PATIENT/FAMILY EDUCATION NEEDS:: Discharge plan, limitations, follow up plan, Ask Me Three. ANTICIPATED BARRIERS TO DISCHARGE:: none identified TRANSPORTATION:: via private vehicle with when ready. PLAN:: Shanita will be discharged home in the morning with no services. Her will transport. She will follow up with her surgeon, PCP and discharge plan of care. CM will continue to support Shanita and assist with any discharge needs identified.
[2018-12-05] MEDS: fentaNYL 100 MCG/2 ML VIAL IVP ×2 (10:43→10:58)
[2018-12-05] MEDS: Ketorolac 30 MG/ML VIAL IVP ×2 (11:35→18:39)
--- NOTE | 2018-12-05 11:35 | PHARADMIT ---
Admission Pharmacy Clinical Review RUQ Pain, Cholelithiasis Code Status Full Code Current Weight Wgt- 63.4 kg Renally Cleared and Narrow Therapeutic Index Meds CrCl~ 85.7 mL/min Meds-OK QTc Value / Action Taken QTc-407 NA BP Control, Fever BP-121/70 Tmax- 37.0C Electrolytes reviewed Na- 136 K+4.2 DVT Prophylaxis none Opiate Usage / Scheduled Bowel Regimen Ordered Yes No Plt/SCr for Heparin / Enoxaparin Plts-236 SCr-0.76 INR for Warfarin NA H/H stable, WBC/Bands H&H- 13.1/38.7 WBC- 7.81 Antibiotic appropriateness Zosyn Cultures and Sensitivities none Surgical ABX d/c within 24 hr NA DM control / Insulin Dosing BG-95 Heart Failure (Check EF%) (LISSY's, B-Block, Diuretics) none IV to PO Switch No Home Meds Reviewed Yes Home Meds Not Ordered Flagyl, Ibuprofen, Comments
--- NOTE | 2018-12-05 11:42 | ROE_ITS ---
DATE OF PROCEDURE: December 05, 2018 PREOPERATIVE DIAGNOSIS: Acute cholecystitis. POSTOPERATIVE DIAGNOSIS: Same. PROCEDURE: Laparoscopic cholecystectomy. SURGEON: Maryellen Diez M.D. ANESTHESIA: Local and general. INDICATIONS: This is a 23-year-old woman with right upper quadrant pain worsened by eating. She has also had nausea but no significant vomiting. She had a CT scan of the abdomen and pelvis that showe d mild gallbladder wall thickening, as well as a calcified gallstone. She was also noted to have a r ight ovarian cyst. The patient was scheduled for surgery tomorrow but presented over the weekend wit h constant and worsening pain. Her LFT's and CBC have been normal. PROCEDURE: She was placed supine on the operating table and under general anesthetic was prepped and draped sterilely. A 5 mm incision was made to the left of the umbilicus and the abdomen entered und er direct visualization. A CO2 pneumoperitoneum was begun. The right ovary was inspected and appear ed slightly cystic but otherwise not unusual. There was a small amount of clear free fluid in the p maria l. The gallbladder was edematous but otherwise not dramatically inflamed. The epigastric and tw o lateral ports were placed under direct visualization after injecting local anesthetic. The gallbla dder was decompressed of about 30 cc's of typical appearing bile. The gallbladder fundus was grasped and pulled up over the liver and the infundibulum retracted laterally. The peritoneum overlying tri angle of [place] was dissected free with hook cautery. The cystic artery was identified going directly onto the gallbladder and was clipped twice proximally and once distally and divided with scissors. The cystic duct was also visualized going directly onto the gallbladder. This was not dilated. The common bile duct was visualized and avoided. Two clips were applied to the distal cystic duct, one p roximally and then the duct divided. There was also a small posterior arterial branch that was clipp ed twice. The gallbladder was then dissected off the liver bed with hook cautery. There was some de finite edema of the gallbladder wall consistent with mild acute cholecystitis. After the gallbladder was removed, the surgical site was inspected. There was no evidence of bleeding or bile leak. The gallbladder was placed in an Endo-Catch batch and removed through the epigastric incision. There was a single stone palpated within the gallbladder. There was good hemostasis. The posts were removed and the CO2 released. The skin at all port sites were closed with a #4-0 Monocryl subcuticular stitc h. She tolerated the procedure well and was stable to recovery. cc: Navi Bello M.D.
--- NOTE | 2018-12-05 14:14 | W.PM.DS.N ---
Date of service: 12/06/18 Time of Service: 08:35 DS: Diagnosis Discharge Diagnosis (1) Cholelithiases: Status: Acute Discharge Plan Disposition Condition: Good Discharge Details Chief Complaint: Abd Prob Clinical Impression: Abdominal pain, right upper quadrant, Cholelithiasis Reason For Visit: RUQ PAIN, CHOLELITHIASIS Admit Date/Time: 12/05/18 19:32 Admit Provider: Maryellen Diez Attending Provider: Maryellen Diez Primary Care Provider: Navi Bello Provider: Navi Bosch [facility] Course Hospital Course: The patient was admitted for pain control and treatment of nausea. Admission labs were normal. She was taken to the operating room on 12/05/18 for lap calvin. The gallbladder was edematous but not dramatically inflamed. The right ovary was also inspected and appeared somewhat cystic but otherwise normal. She tolerated the procedure well Home Meds and New Rx's Prescriptions: Continued hydrocodone-acetaminophen 5-325 mg tablet 1 tab PO Q6H MDD 4 PRN (Reason: pain) Qty: 30 RF: 0 fluoxetine [Prozac] 40 mg Capsule 40 mg PO DAILY RF: 0 ibuprofen 800 mg Tablet 800 mg PO TID-QID PRNRF: 0 Discontinued metronidazole [Flagyl] 500 mg tablet 500 mg PO BID Qty: 14 RF: 0 ciprofloxacin HCl 500 mg tablet 500 mg PO BID Qty: 14 RF: 0 Discharge Instructions Additional Instructions: May advance diet as tolerated but avoid high fat foods for two weeks. Remove bandaids tomorrow. It is okay to shower and allow the water to run over the steri strips. These will stick for about a week. The sutures are dissolveable. Do not drive while taking narcotic pain meds. Call for increasing pain, fever, jaundice or evidence of infection. Walking and stairs are fine but do not lift more than 15# for two weeks. Referrals: Maryellen Diez MD [ [facility] STAFF PHYSICIAN] - (Return for a postop visit in two weeks) Activity:: Do not lift more than 15# for two weeks Equipment/Supplies:: No Equipment Needed Diet:: Low fat Exam Narrative Exam Narrative: She is alert Abdomen soft, incisions without erythema or bruising DS: Data Vitals/I&O Vitals and I&O: Vital Signs Temperature 98.1 F 12/05/18 13:53 Temperature Source Tympanic 07/15/19 13:53 Pulse 76 12/05/18 13:53 Pulse Rhythm Regular 12/05/18 09:47 Respiratory Rate 16 12/05/18 13:53 Respiratory Effort 12/05/18 09:47 Respiratory Depth Normal 12/05/18 09:47 Respiratory Pattern Normal 12/05/18 09:47 Blood Pressure 108/74 12/05/18 13:53 Blood Pressure Position Sitting 12/04/18 00:41 Pulse Oximetry 98 12/05/18 13:53 Respiratory End-tidal CO2 32 12/05/18 11:05 Oxygen Delivery Method Room Air 12/05/18 13:53 Oxygen Flow Rate 0 12/05/18 13:53 Pain Level 9 12/05/18 14:05 Comment 12/05/18 08:15 Intake & Output 12/04/18 12/05/18 12/05/18 23:59 11:59 23:59 Intake Total 2390 / 3440.5 2366.667 / 2472.917 106.25 / 2472.917 Output Total 500 / 950 300 / 750 450 / 750 Balance 1890 / 2490.5 2066.667 / 1722.917 -343.75 / 1722.917 Intake: IV 1100 / 2150.5 2366.667 / 2472.917 106.25 / 2472.917 Oral 1290 / 1290 0 / 0 Output: Urine 500 / 950 300 / 750 450 / 750 Other: Urine Color Yellow Yellow Light Beulah Urine Appearance Clear Clear Clear Urine Odor Normal Normal Emesis Description None Voiding Methods Toilet Toilet Toilet [facility] Medical History Anxiety (Chronic) Surgical History History of placement of ear tubes (Acute) History of tubal ligation (Chronic) S/P laparoscopic cholecystectomy (Acute) Social History Smoking/Tobacco Use Status: Current every day Tobacco Type: cigarettes Alcohol Intake: current Alcohol Intake frequency: holidays/special occasions only Drug use: Daily Substance use type: marijuana Do you feel safe at home: Yes Do you feel safe in your relationship?: Yes Additional Social history: pt is not alone to assess privately
[2018-12-05] MEDS: HYDROcodone 5/Acetaminophen 325 TAB PO ×2 (18:43→23:02)
[2018-12-06 00:52] VITALS: BP 90/57; PULSE 56; RESP 16; TEMP 37.4; O2SAT 99
[2018-12-06] MEDS: Ketorolac 30 MG/ML VIAL IVP ×2 (04:03→09:44)
[2018-12-06 04:14] VITALS: BP 93/61; PULSE 68; RESP 16; TEMP 36.9; O2SAT 98
[2018-12-06] MEDS: Lactated Ringers 1,000 ML 125 ML IV (06:30)
--- NOTE | 2018-12-06 06:47 | W.PM.PROGNOT ---
Date of Service Date of service: 12/06/18 Time of Service: 06:47 Assessment and Plan (1) Cholelithiases: Current visit: Yes Status: Acute POD #1 s/p laproscopic cholecystectomy Tolerating post-op diet. Pain is currently well managed Encouraged ambulation in the hallway and sitting out of bed for meals Disposition- D/C home later today Qualifiers: Cholecystitis presence: with cholecystitis Subjective Interval history since last seen: Patient reports the pain level right now is a little more than tolerable and it hurts most between the 2 upper incisions on my right side. Tolerated post op diet yesterday with reports of diarrhea following eating pudding. Ambulating to/from the restroom independently. Unable to walk in the hallway yesterday, because it hurt too much. Exam Const General: cooperative, comfortable and in distress mild Orientation: alert and oriented x3 Resp Effort & Inspection: normal respiratory effort, no audible wheezes and no cough GI Inspection: normal to inspection, non-distended and incision (covered with band-aids) Palpation: soft, no guarding and tender in the RUQ Objective Objective Clinical Data: Vital Signs Temperature 36.9 C 12/06/18 04:14 Temperature Source Tympanic 12/06/18 04:14 Pulse 68 12/06/18 04:14 Pulse Rhythm Regular 12/05/18 20:25 Respiratory Rate 16 12/06/18 04:14 Respiratory Effort Non-Labored 12/05/18 20:25 Respiratory Depth Normal 12/05/18 20:25 Respiratory Pattern Normal 12/05/18 20:25 Blood Pressure 93/61 L 12/06/18 04:14 Blood Pressure Position Sitting 12/04/18 00:41 Pulse Oximetry 98 12/06/18 04:14 Respiratory End-tidal CO2 32 12/05/18 11:05 Oxygen Delivery Method Room Air 12/06/18 04:14 Oxygen Flow Rate 0 12/06/18 04:14 Pain Level 8 12/06/18 04:03 Comment 12/05/18 08:15 Intake & Output 12/05/18 12/05/18 12/06/18 06:59 18:59 06:59 Intake Total 956.667 / 3307.167 1856.75 / 4300.083 2443.333 / 4300.083 Output Total 300 / 800 450 / 1400 950 / 1400 Balance 656.667 / 2507.167 1406.75 / 2900.083 1493.333 / 2900.083 Intake: IV 866.667 / 2016.167 1706.75 / 3650.083 1943.333 / 3650.083 Oral 90 / 1290 150 / 650 500 / 650 Output: Urine 300 / 800 450 / 1400 950 / 1400 Other: Urine Color Yellow Light Beulah Light Beulah Urine Appearance Clear Clear Clear Urine Odor Normal Normal None Stool Size Small Stool Characteristics Liquid Emesis Description None Voiding Methods Toilet Toilet Toilet Laboratory Results WBC 7.81 k/cumm (4.4-10.8) 12/04/18 00:58 RBC 4.64 m/cumm (4.00-5.20) 12/04/18 00:58 Hgb 13.1 g/dL (12.0-15.5) 12/04/18 00:58 Hct 38.7 % (36.0-46.0) 12/04/18 00:58 MCV 83.4 fL (80-95) 12/04/18 00:58 MCH 28.2 pg (27.0-33.0) 12/04/18 00:58 MCHC 33.9 g/dL (32.0-36.0) 12/04/18 00:58 RDW 13.7 % (11.7-14.6) 12/04/18 00:58 Plt Count 236 x1000/uL (130-400) 12/04/18 00:58 MPV 9.4 fL (8.0-11.0) 12/04/18 00:58 Immature Gran % 0.3 12/04/18 00:58 51.3 12/04/18 00:58 34.2 12/04/18 00:58 10.1 12/04/18 00:58 3.8 12/04/18 00:58 0.3 12/04/18 00:58 Absolute Neutrophils 4.01 k/cumm (1.2-6.7) 12/04/18 00:58 Absolute Lymphocytes 2.67 k/cumm (1.2-3.4) 12/04/18 00:58 Absolute Monocytes 0.79 k/cumm (0.11-0.7) H 12/04/18 00:58 Absolute Eosinophils 0.30 k/cumm (0.0-0.7) 12/04/18 00:58 Absolute Basophils 0.02 k/cumm (0.0-0.2) 12/04/18 00:58 Sodium 136 mmol/L (136-145) 12/04/18 00:58 Potassium 4.2 mmol/L (3.5-5.1) 12/04/18 00:58 Chloride 101 mmol/L (98-107) 12/04/18 00:58 Carbon Dioxide 24.6 mmol/L (21.0-32.0) 12/04/18 00:58 10.4 mmol/L (3-11) 12/04/18 00:58 BUN 13 mg/dL (7-18) 12/04/18 00:58 0.76 mg/dL (0.55-1.02) 12/04/18 00:58 >= 60.00 (mL/min/1.73m2) 12/04/18 00:58 Glucose 95 mg/dL (70-100) 12/04/18 00:58 Calcium 9.2 mg/dL (8.5-10.1) 12/04/18 00:58 0.1 mg/dL (0.2-1.0) L 12/04/18 00:58 AST 15 U/L (15-37) 12/04/18 00:58 ALT 16 U/L (12-78) 12/04/18 00:58 63 U/L (46-116) 12/04/18 00:58 7.4 g/dL (6.4-8.2) 12/04/18 00:58 4.2 g/dL (3.4-5.0) 12/04/18 00:58 145 U/L (73-393) 12/04/18 00:58
[2018-12-06 07:50] VITALS: BP 109/75; PULSE 67; RESP 22; TEMP 37.6; O2SAT 100
[2018-12-06] MEDS: HYDROcodone 5/Acetaminophen 325 TAB PO (07:55)
[2018-12-06] MEDS: FLUoxetine 20 MG CAP 40 MG PO (07:56)
[2018-12-06] MEDS: Normal Saline Flush 10 ML SYR IVP (09:44)
--- NOTE | 2018-12-06 13:25 | PDOC.CMDIS ---
- If Service Date Differs Date of service: 12/06/18 Time of Service: 13:25 LACE Index Scoring Tool - Questions: Length of Stay (in days): 1 Acuity (Admit via E.D.?): Yes E.D. Visits: 3 - Answers: Total Score: 7 Risk of Readmission: Low Risk Care Management Discharge Reason for Hospitalization: Cholelithiasis Discharge Plan: Shanita will be discharged home this morning with no services. Her will transport. She will follow up with her surgeon, PCP and discharge plan of care. Patient/Family Education Needs: Discharge plan, limitations, follow up plan, Ask Me Three
== END 2018-12-06 10:16 | disposition home or self-care (01) | DRG 419 ==
LOC: ER 02:04 → MS 11:10
PROVIDERS: Admitting Provider Surgery; Emergency Provider Emergency Medicine; PCP Internal Medicine; Visit Provider Surgery
PROC: 0FT44ZZ Resection of Gallbladder, Percutaneous Endoscopic Approach (ICD-10-PCS; CPT 47562; principal; 2018-12-05 08:30)
DX: K80.12 Calculus of gallbladder with acute and chronic cholecystitis without obstruction (principal); G89.18 Other acute postprocedural pain; F17.210 Nicotine dependence, cigarettes, uncomplicated
CPT/HCPCS: 47562; 36415; 80053; 83690; 96374; 96375; 99222; 99231; 99238; 99285; NC; 85025; 88304; 99284; G0378; J1100; J1885; J2250; J2270; J2405; J2543; J3010

== ENCOUNTER 2018-12-13 20:46 | Emergency (ER) | payer MEDICAID, SELFPAY ==
[2018-12-13 20:58] VITALS: BP 115/62; PULSE 80; RESP 16; TEMP 36.4; O2SAT 100
--- NOTE | 2018-12-13 21:41 | W.ED.GENAD ---
Discharge Plan Disposition Patient Disposition: HOME Condition: Good Discharge Details Chief Complaint: Abd Prob Clinical Impression: Abdominal pain Primary Care Provider: Navi Bello ED Provider: Navi Bosch Home Meds and New Rx's Prescriptions: Continued hydrocodone-acetaminophen 5-325 mg tablet 1 tab PO Q6H MDD 4 PRN (Reason: pain) Qty: 30 RF: 0 fluoxetine [Prozac] 40 mg Capsule 40 mg PO DAILY RF: 0 ibuprofen 800 mg Tablet 800 mg PO TID-QID PRNRF: 0 Discharge Instructions Additional Instructions: Laboratory studies and CT scan look fine tonight. Will discharge with a Vicodin to use overnight if needed. Contact Dr. Diez in the morning. Return to ED if you develop fever, vomiting, new or worsening pain. Referrals: Maryellen Diez MD [ [facility] STAFF PHYSICIAN] - Discharge Data Discharge Date/Time-TO BE ENTERED AT DEPARTURE: 12/13/18 23:17 Medical Decision Making Patient presenting with right upper quadrant pain approximately 1 week postop from cholecystectomy. Most of her pain seems to be localized over the right upper quadrant incision site. There is no redness or warmth. She looks uncomfortable and complains of significant pain with palpation. Doubt abscess or bile leak but will need labs and CT scan. IV ordered with Toradol initially being given for pain. Laboratory studies are unremarkable. White count is normal. Liver function and bilirubin are normal. Lactic acid normal. Lipase normal. Toradol helped a little. She received 50 mcgs of Fentanyl on return from CT scan. CT scan shows typical postoperative changes but otherwise unremarkable. Patient's pain essentially gone after dose of fentanyl. Patient will be given a Vicodin to use overnight if needed and is asked to contact surgeon, Dr. Diez in the morning for follow-up. Return to ED if she develops fever, vomiting, new or worsening pain. Medical Records Medical records reviewed: Yes I reviewed the patient's medical records. Lab Data Lab results reviewed: Yes I reviewed the patient's lab results. HPI General Mode of arrival: ambulatory. Date/Time Provider Initiated Documentation: 12/13/18 20:59. Limitations to Documentation: no limitations. Information obtained by: patient, RN notes reviewed and old records reviewed. HPI Narrative: Patient presents to ED with onset of right upper quadrant abdominal pain this evening. She is about 1 week postop from a laparoscopic cholecystectomy. She had been doing well only needing Vicodin now and then and using ibuprofen mostly. Tonight for some reason she had acute onset of right upper quadrant abdominal pain again. She has no chest pain or shortness of breath. She has pain in the right upper quadrant with deep breathing or movement. She has no fever, nausea, vomiting. She has no back pain. She did take a Vicodin prior to coming in with no relief. Related Data Home Medications Medication Instructions Recorded Confirmed fluoxetine [Prozac] 40 mg PO DAILY 08/26/18 12/13/18 ibuprofen 800 mg PO TID-QID PRN 08/26/18 12/13/18 hydrocodone 5 mg-acetaminophen 325 1 tab PO Q6H PRN #30 tab MDD 4 12/01/18 12/13/18 mg tablet Previous Rx's Medication Instructions Recorded hydrocodone 5 mg-acetaminophen 325 1 tab PO Q6H PRN #30 tab MDD 4 12/01/18 mg tablet Allergies Allergy/AdvReac Type Severity Reaction Status Date / Time No Known Allergies Allergy Verified 12/04/18 00:44 General Stated Complaint: Abd Prob DEQUAN: 3 Review of Systems Review of Systems 03/06 Review of Systems completed and is negative except as stated above in HPI (Systems reviewed: Const, Eyes, ENT, Resp, CV, GI, , MSK, Skin, Neuro) [facility] Medical History Anxiety (Chronic) Surgical History History of placement of ear tubes (Acute) History of tubal ligation (Chronic) S/P laparoscopic cholecystectomy (Acute) Social History Smoking/Tobacco Use Status: Current every day Tobacco Type: cigarettes Alcohol Intake: current Alcohol Intake frequency: holidays/special occasions only Drug use: Daily Substance use type: marijuana Do you feel safe at home: Yes Do you feel safe in your relationship?: Yes Additional Social history: pt is not alone to assess privately Exam Narrative Exam Narrative: Vitals: Afebrile with normal vitals. Const: WDWN female in no distress but uncomfortable. HEENT: NC/AT. Normal facial exam. Eyes: Normal conjunctiva and sclera. Neck: Supple. Trachea midline. Lungs: Normal respiratory effort. Lungs are clear. Cor: RRR without murmur/gallop. Good radial pulses. GI: Soft and non-distended. Tender to palpation in RUQ mostly over the RUQ port site. Neuro: A+O x 3. CN grossly in tact. Good strength and no focal deficit. Ext: No C/C/E. No deformity or tenderness. No calf tenderness. Skin: Warm and dry without rash. Course Vital Signs Temperature 97.5 F L 12/13/18 20:58 Pulse 80 12/13/18 20:58 Respiratory Rate 16 12/13/18 20:58 Blood Pressure 115/62 12/13/18 20:58 Pulse Oximetry 100 12/13/18 20:58 Temperature 97.5 F L 12/13/18 20:58 Temperature Source Skin 12/13/18 20:58 Pulse 80 12/13/18 20:58 Respiratory Rate 16 12/13/18 20:58 Blood Pressure 115/62 12/13/18 20:58 Blood Pressure Position Sitting 12/13/18 20:58 Pulse Oximetry 100 12/13/18 20:58 Oxygen Delivery Method Room Air 12/13/18 20:58 Oxygen Flow Rate 0 12/13/18 20:58 Pain Level 10 12/13/18 20:58
[2018-12-13 22:00] LABS: Lactate-non-spesis 0.7 mmol/l (0.6-1.4)
[2018-12-13 22:01] LABS: Abs Immature Grans 0.02 k/cumm (0.0-0.09); Absolute Basophil Count 0.02 k/cumm (0.0-0.2); Absolute Eosinophil Count 0.35 k/cumm (0.0-0.7); Absolute Lymphocyte Count 1.82 k/cumm (1.2-3.4); Absolute Monocyte Count 0.58 k/cumm (0.11-0.7); Absolute Neutrophil Count 4.53 k/cumm (1.2-6.7); Basophils % 0.3; Eosinophils % 4.8; HCT 39.1 % (36.0-46.0); Immature Grans % 0.3; Lymphocytes % 24.9; Mean Corp. HGB Concentration 33.2 g/dL (32.0-36.0); Mean Corpuscular Hemoglobin 27.4 pg (27.0-33.0); Mean Corpuscular Volume 82.3 fL (80-95); Mean Platelet Volume 8.8 fL (8.0-11.0); Monocytes % 7.9; Neutrophils % 61.8; Platelet Count 304 x1000/uL (130-400); RBC 4.75 m/cumm (4.00-5.20); RBC Distribution Width 13.6 % (11.7-14.6); White Blood Cell Count 7.32 k/cumm (4.4-10.8)
[2018-12-13 22:20] LABS: ALT 21 U/L (12-78); AST 9 U/L (15-37); Albumin 4.3 g/dL (3.4-5.0); Alkaline Phosphatase 72 U/L (46-116); BUN 10 mg/dL (7-18); Bilirubin, Total 0.2 mg/dL (0.2-1.0); CREATININE 0.73 mg/dL (0.55-1.02); Calcium 9.6 mg/dL (8.5-10.1); Chloride 100 mmol/L (98-107); Glucose 92 mg/dL (70-100); Lipase 128 U/L (73-393); Potassium 3.7 mmol/L (3.5-5.1); Sodium 137 mmol/L (136-145); Total Protein 8.3 g/dL (6.4-8.2)
[2018-12-13 22:24] LABS: HCG Qual (Serum) Negative
[2018-12-13] MEDS: Ketorolac 30 MG/ML VIAL IVP (22:24)
[2018-12-13] MEDS: Omnipaque 350 MG/ML 100 ML BTL IJ (22:40)
--- NOTE | 2018-12-13 22:50 | DI.CT_ITS ---
SYMPTOMS/DIAGNOSIS: 1 WK POST OP FROM [facility] WITH INCREASED PAIN CT SCAN OF THE ABDOMEN AND PELVIS: CT scan of the abdomen and pelvis was performed following the uneventful administration of intravenous contrast material. Comparison is 11/29/18. The visualized lung bases are clear. The liver is normal in size. No hepatic mass is seen. The portal, superior mesenteric and splenic veins are patent. The patient is status post cholecystectomy. There is a small amount of edema seen in the gallbladder fossa but no focal fluid collection is seen to suggest abscess. No biliary ductal dilatation is present. The pancreas, spleen and adrenal glands are unremarkable. Incidental note is made of an accessory spleen in the hilum. The kidneys show normal and symmetric enhancement. No evidence of obstructive uropathy is seen. The urinary bladder is intact. The reproductive organs are unremarkable. The bowel shows no evidence of obstruction, inflammation or infection. There is a normal appendix present. The abdominal aorta is of normal caliber. No significant abdominal or pelvic adenopathy, ascites or pneumoperitoneum is present. No acute osseous abnormality is identified. IMPRESSION: Status post cholecystectomy. No acute abnormality.
[2018-12-13] MEDS: fentaNYL 100 MCG/2 ML VIAL 50 MCG IVP (22:57)
--- NOTE | 2018-12-13 22:57 | DI.VRAD_ITS ---
EXAM: CT Abdomen and Pelvis With Contrast EXAM DATE/TIME: 12/13/2018 10:31 PM CLINICAL HISTORY: 23 years old, female; Prior surgery; Surgery date: 3-7 days post-operative; Surgery type: 1 week post op from calvin with increased pain, ruq TECHNIQUE: Imaging protocol: Axial computed tomography images of the abdomen and pelvis with intravenous contrast. Coronal and sagittal reformatted images were created and reviewed. Radiation optimization: All CT scans at this facility use at least one of these dose optimization techniques: automated exposure control; mA and/or kV adjustment per patient size (includes targeted exams where dose is matched to clinical indication); or iterative reconstruction. Contrast material: OMNIPAQUE 350; Contrast volume: 91 ml; Contrast route: IV; COMPARISON: CT ABDOMEN PELVIS W 11/29/2018 8:22 AM FINDINGS: Liver: No suspicious lesions. Gallbladder and bile ducts: Cholecystectomy Pancreas: Unremarkable. No ductal dilation. Spleen: No suspicious lesions. Adrenals: Unremarkalbe. No suspicious mass. Kidneys and ureters: Unremarkable. No hydro. No suspicious lesions. Stomach and bowel: Unremarkable. No obstruction or inflammatory changes. Appendix: No evidence of appendicitis. Intraperitoneal space: No free air. No significant fluid collection. Vasculature: Unremarkable. No acute findings Lymph nodes: Unremarkable. Bladder: Unremarkable as visualized. Reproductive: Unremarkable as visualized. Bones/joints: No acute fracture. No dislocation. Soft tissues: Unremarkable. IMPRESSION: Typical postoperative changes. No acute findings. Dictated and Authenticated by: Kane Pearce MD. Ordering:LIDIA Mcelroy MD
[2018-12-13 23:15] VITALS: BP 115/62; PULSE 80; RESP 16; TEMP 36.4; O2SAT 100
[2018-12-13] MEDS: HYDROcodone 5/Acetaminophen 325 TAB PO (23:17)
== END 2018-12-13 23:17 | disposition home or self-care (01) ==
PROVIDERS: Emergency Provider Emergency Medicine; PCP Internal Medicine
DX: R10.11 Right upper quadrant pain (principal); Z98.890 Other specified postprocedural states
CPT/HCPCS: 36415; 80053; 83690; 96374; 96375; 99285; 74177; 83605; 84703; 85025; 99284; J1885; J3010; J3490

== ENCOUNTER 2019-12-17 06:23 | Emergency (ER) | payer MEDICAID, SELFPAY ==
[2019-12-17 06:27] VITALS: BP 124/88; PULSE 140; RESP 18; TEMP 37.6; O2SAT 100
--- NOTE | 2019-12-17 06:40 | W.ED.GENAD ---
Discharge Plan Disposition Patient Disposition: HOME Condition: Stable Discharge Details Chief Complaint: Fever Clinical Impression: Gastroenteritis Primary Care Provider: Navi Bello ED Provider: Hermilo Lee Home Meds and New Rx's Prescriptions: New ondansetron 4 mg tablet,disintegrating 4 mg PO Q8H PRN (Reason: nausea and vomiting) Qty: 30 RF: 0 Continued fluoxetine [Prozac] 40 mg Capsule 40 mg PO DAILY RF: 0 ibuprofen 800 mg Tablet 800 mg PO TID-QID PRNRF: 0 buspirone 10 mg tablet 10 mg PO QAM RF: 0 Discharge Instructions Instructions: Gastroenteritis (ED) Additional Instructions: try to drink fluids to stay hydrated follow up with your primary care provider within 1 week if you have severe pain, persistent vomit or feel more ill return to the emergency department Medical Decision Making 24 yo female who denies any chrionic medical problems, has prior cholecystectomy, who denies drug use other than marijuana, comes in with cc of loose stools since yesterday along with nausea and intermittent mild abdominal cramping and temp to 100.1 as well as some intermittent chills. STates this feels similar to a stomach bug she had a few years ago. Denies chest pain, cough, sick contacts, rashes, dyspnea, travel. On exam is in no distress speaking in full sentences with clear lungs, no rmurmurs, no rashes or stigmata of endocarditis, and soft nontedner abdomen. I suspect her symptoms are due to a viral gastroenteritis but will test for covid19 as well. She was initially tachycardic and states she hasn't had much to drink due to nausea. I recommended IVF and obtaining basic labs but she declined and would prefer symptomatic management at this time rather than lab work as she feels it is a stomach gastroenteritis. She has capacity to make her own decisions and understands risks of not performing labs and IVF and short observation here. Will start her on zofran, advised f/u with pcp and return precautions Differential Diagnosis Differential Diagnosis: gastroenteritis, covid19, influenza HPI General Mode of arrival: ambulatory. Date/Time Provider Initiated Documentation: 12/17/19 06:25. Limitations to Documentation: no limitations. Information obtained by: patient. History of Present Illness 24 year old F presents to the emergency department with the chief complaint of diarrhea, described as moderate, Patient started experiencing this day(s) (1) and it has been constant. No relieving factors improve symptom(s), No exacerbating factors reported . Related Data Home Medications Medication Instructions Recorded Confirmed fluoxetine [Prozac] 40 mg PO DAILY 08/26/18 12/17/19 ibuprofen 800 mg PO TID-QID PRN 08/26/18 12/22/18 buspirone 10 mg PO QAM 12/17/19 12/17/19 ondansetron 4 mg PO Q8H PRN #30 tab 12/17/19 Previous Rx's Medication Instructions Recorded ondansetron 4 mg PO Q8H PRN #30 tab 12/17/19 Allergies Allergy/AdvReac Type Severity Reaction Status Date / Time No Known Allergies Allergy Verified 12/17/19 06:31 General Stated Complaint: Fever DEQUAN: 3 Review of Systems All systems reviewed & are unremarkable except as noted in HPI and below Constitutional Constitutional: Denies weakness Eyes Eyes: Denies loss of vision Cardiovascular Cardiovascular: Denies chest pain and Denies dyspnea Respiratory Respiratory: Denies cough and Denies dyspnea Gastrointestinal Gastrointestinal: Denies abdominal pain and Denies nausea Musculoskeletal Musculoskeletal: Denies joint swelling Neurologic Neurologic: Denies loss of vision and Denies weakness Psychiatric Psychiatric: Denies depression [facility] Surgical History (Updated 12/29/18 @ 15:47 by Sadia He RN) History of placement of ear tubes (Acute) History of tubal ligation (Chronic) S/P laparoscopic cholecystectomy (Acute) 12/05/18, Dr Maryellen Deiz, [facility] Social History Smoking/Tobacco Use Status: Current every day Tobacco Type: cigarettes Alcohol Intake: current Alcohol Intake frequency: holidays/special occasions only Drug use: Daily Substance use type: marijuana Do you feel safe at home: Yes Do you feel safe in your relationship?: Yes Exam Const General: no acute distress Orientation: alert HENMT Head: normal to inspection Ears: external ears normal General nose exam: external nose normal Mouth: moist mucous membranes Eyes General: appearance normal, both eyes and all related structures Neck Neck: normal visual inspection Resp Effort & Inspection: normal respiratory effort and able to speak in complete sentences Cardio Rate: regular rate ([id number] on my exam) GI Palpation: soft, no guarding and nontender Skin General skin exam: no rashes or lesions noted Neuro General: patient alert and patient oriented x3 Extrem General: normal to inspection Psych Mental Status: mental status grossly normal Course Vital Signs Vital signs: Vital Signs Temperature 37.6 C 12/17/19 06:27 Pulse 140 H 12/17/19 06:27 Respiratory Rate 18 12/17/19 06:27 Blood Pressure 124/88 12/17/19 06:27 Pulse Oximetry 100 12/17/19 06:27 Temperature 37.6 C 12/17/19 06:27 Temperature Source Oral 12/17/19 06:27 Pulse 140 H 12/17/19 06:27 Respiratory Rate 18 12/17/19 06:27 Respiratory Effort Non-Labored 12/17/19 06:32 Blood Pressure 124/88 12/17/19 06:27 Pulse Oximetry 100 12/17/19 06:27 Oxygen Delivery Method Room Air 12/17/19 06:27 Oxygen Flow Rate 0 12/17/19 06:27 Pain Level 8 12/17/19 06:27
[2019-12-17] MEDS: Ondansetron O.D.T. 4 MG TABEF PO (06:45)
[2019-12-20 05:20] LABS: SARS-CoV-2 RNA Undetected (Undetected); SARS-CoV-2 Specimen Source Nasopharynx
== END 2019-12-17 06:53 | disposition home or self-care (01) ==
PROVIDERS: Emergency Provider Emergency Medicine; PCP Internal Medicine
DX: K52.9 Noninfective gastroenteritis and colitis, unspecified (principal); R11.0 Nausea; Z11.59 Encounter for screening for other viral diseases
CPT/HCPCS: 99283; U0003

== ENCOUNTER 2020-01-06 11:27 | Outpatient (REF) | payer MEDICAID, SELFPAY ==
[2020-01-09 04:03] LABS: SARS-CoV-2 RNA Undetected (Undetected)
== END 2020-01-06 11:47 ==
LOC: LBN 11:27
PROVIDERS: PCP Internal Medicine; Visit Provider Nurse Practitioner Adult Health
DX: Z11.59 Encounter for screening for other viral diseases (principal)
CPT/HCPCS: U0003

== ENCOUNTER 2020-01-27 15:14 | Emergency (ER) | payer SELFPAY ==
[2020-01-27 15:32] VITALS: BP 115/66; PULSE 81; RESP 18; TEMP 36.6; O2SAT 99
--- NOTE | 2020-01-27 16:33 | NUR.NOTE ---
Nursing Note: Patricia Salgado called stating that the patient stated to her that she was going to go to [facility]. Is LWBS. Aletha Rollins.
== END 2020-01-27 16:34 | disposition left before discharge ==
PROVIDERS: Emergency Provider Registered Nurse Emergency; PCP Internal Medicine
DX: Z53.21 Procedure and treatment not carried out due to patient leaving prior to being seen by health care provider (principal)

== ENCOUNTER 2021-08-30 20:14 | Emergency (ER) | payer MEDICAID, SELFPAY ==
[2021-08-30] VITALS (12 sets, daily range): BP systolic 118–122; BP diastolic 70–94; PULSE 90–127; RESP 10–38; TEMP 36.9; O2SAT 93–99
--- NOTE | 2021-08-30 20:30 | DI.RAD_ITS ---
Exam(s) XR PORTABLE CHEST AP EXAM: XR PORTABLE CHEST AP CLINICAL HISTORY: cough. TECHNIQUE: 2D digital imaging was performed. COMPARISON: CR XR CHEST 2V PA LATERAL from 11/29/2018 FINDINGS: LUNGS: Clear. No pleural abnormality seen. HEART: Normal. MEDIASTINUM: Normal. OTHER FINDINGS: None. IMPRESSION: No acute pulmonary findings. DATA REPOSITORY: RADIATION DOSE DELIVERED: Total DLP
[2021-08-30] MEDS: Normal Saline 1,000 ML 1000 ML IV (20:41)
[2021-08-30] MEDS: ACETAMINOPHEN 1,000 MG/100 ML BTL 400 MG IVPB (20:46)
[2021-08-30] MEDS: Albuterol/Ipratropium 3 ML UPD VIAL UPD (20:47)
[2021-08-30 20:54] LABS: Lactate 1.1 mmol/L (0.6-1.4)
[2021-08-30 20:56] LABS: Abs Immature Grans 0.01 10^3/uL (0.0-0.06); Absolute Basophil Count 0.01 10^3/uL (0.0-0.2); Absolute Eosinophil Count 0.01 10^3/uL (0.0-0.7); Absolute Lymphocyte Count 0.87 10^3/uL (1.2-3.4); Absolute Monocyte Count 0.37 10^3/uL (0.1-0.8); Absolute Neutrophil Count 0.97 10^3/uL (1.2-6.7); Basophils % 0.4; Eosinophils % 0.4; HCT 46.9 % (36.0-46.0); HGB 15.4 g/dL (11.2-15.7); Immature Grans % 0.4; Lymphocytes % 38.8; MCH 28.2 pg (27.0-33.0); MCHC 32.8 % (32.0-36.0); MCV 85.9 fL (80-95); MPV 9.5 fL (8.0-11.0); Monocytes % 16.5; Neutrophils % 43.5; Nucleated RBC 0 %; Platelet Count 197 10^3/uL (130-400); RBC 5.46 10^6/uL (3.93-5.22); RDW 12.5 % (11.7-14.6); WBC 2.24 10^3/uL (4.4-10.8)
[2021-08-30 21:10] LABS: ALT 31 U/L (14-59); AST 27 U/L (15-37); Albumin 4.4 g/dL (3.4-5.0); Alkaline Phosphatase 93 U/L (46-116); Anion Gap 13.9 mmol/L (3-11); BUN 10 mg/dL (7-18); Bilirubin, Total 0.2 mg/dL (0.2-1.0); CO2 23.1 mmol/L (21.0-32.0); CREATININE 0.9 mg/dL (0.55-1.02); Calcium 8.9 mg/dL (8.5-10.1); Chloride 98 mmol/L (98-107); Glucose 105 mg/dL (74-106); Magnesium 2.1 mg/dL (1.8-2.4); Potassium 3.4 mmol/L (3.5-5.1); Sodium 135 mmol/L (136-145); Total Protein 8.6 g/dL (6.4-8.2)
[2021-08-30 21:23] LABS: Diff Comment Agrees w/ Instrument; RBC Morphology Normal
--- NOTE | 2021-08-30 21:27 | ED.GENADUL_ITS ---
Discharge Plan Disposition Patient Disposition: HOME Condition: Improving Discharge Details Clinical Impression: Influenza A Primary Care Provider: Navi Bello ED Provider: Isai Ro Home Meds and New Rx's Prescriptions: New benzonatate 200 mg capsule 200 mg PO TID PRN (Reason: cough) Qty: 30 0RF Continued fluoxetine [Prozac] 40 mg Capsule 40 mg PO DAILY 0RF ibuprofen 800 mg Tablet 800 mg PO TID-QID PRN0RF buspirone 10 mg tablet 10 mg PO QAM 0RF Label Comments: TAKE ONE TABLET BY MOUTH TWICE A DAY NEEDED Flovent HFA 110 mcg/actuation HFA aerosol inhaler 2 puff INHALATION BID 0RF Label Comments: INHALE TWO PUFFS BY MOUTH TWICE A DAY albuterol sulfate [ProAir HFA] 90 mcg/actuation HFA aerosol inhaler 2 puff INHALATION PRN PRN (Reason: shortness of breath or wheezing) Qty: 6.7 0RF Discharge Instructions Instructions: Influenza (ED) Additional Instructions: It is very important that while you are ill that you stay well-hydrated and get plenty of rest. Please take medication as prescribed and if you have any significant worsening of your symptoms please return to the emergency department for reassessment. Otherwise if you are not improving in the next week please follow-up with primary care provider for reassessment. Stand Alone Forms: Work Release Referrals: Navi Bello [Primary Care Provider] - (If not improving in the next week) Discharge Data Discharge Date/Time-TO BE ENTERED AT DEPARTURE: 08/30/21 22:32 Medical Decision Making Patient presenting to the emergency department with chief complaint of dry cough, fever chills, body aches. 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 Patient denies any abdominal pain nausea vomiting diarrhea. Physical exam shows an acutely ill but nontoxic female with obvious dry cough exacerbated by deep inspiration, clear lung sounds auscultated over the coughing, patient is tachycardic, otherwise nondiagnostic exam. Suspect viral etiology but given the patient works in a healthcare facility we will plan on performing viral swab labs and give fluids. Given dry cough with fever will also perform chest x-ray. Pending result will give patient IV fluids, acetaminophen, and albuterol. Review of labs show a low WBC count, high RBC, low neutrophils and lymphocytes. Patient has slightly low sodium and potassium but do not feel these need to be treated at this time. Anion gap of 13.9, otherwise nondiagnostic CMP. Patient is positive for influenza A and negative for Covid and RSV. Chest x-ray shows no focal consolidation. Reassessed patient and patient states significant improvement of symptoms and feeling better. Given that is been more than 48 hours since symptom onset I do not feel that patient would benefit from antivirals and discussed conservative management of symptoms along with return and follow-up precautions. After discussion of diagnosis and plan of care patient has no further needs, questions, or concerns and states clear understanding to return to the emergency department for any worsening symptoms. Imaging Data Radiologic Study: Imaging: X-Ray Radiologist's impression: IMPRESSION: Mild hyperinflation without airspace consolidation. HPI General Mode of arrival: ambulatory . Date/Time Provider Initiated Documentation: 08/30/21 20:36 . Limitations to Documentation: no limitations . Information obtained by: patient . History of Present Illness 26 year old F presents to the emergency department with the chief complaint of Fever, chills, cough, body aches, described as moderate, with intensity rated at 6. Quality is described as aching, Patient reports no radiation. Patient started experiencing this day(s) (3) Related Data Home Medications Medication Instructions Recorded Confirmed fluoxetine 40 mg capsule (Prozac) 40 mg PO DAILY 08/26/18 08/30/21 ibuprofen 800 mg tablet 800 mg PO TID-QID PRN 08/26/18 08/30/21 buspirone 10 mg tablet 10 mg PO QAM 12/17/19 08/30/21 albuterol sulfate 90 mcg/actuation 2 puff INHALATION PRN PRN #6.7 g 08/30/21 aerosol inhaler (ProAir HFA) benzonatate 200 mg capsule 200 mg PO TID PRN #30 cap 08/30/21 fluticasone propionate 110 2 puff INHALATION BID 08/30/21 08/30/21 mcg/actuation HFA aerosol inhaler (Flovent HFA) Previous Rx's Medication Instructions Recorded albuterol sulfate 90 mcg/actuation 2 puff INHALATION PRN PRN #6.7 g 08/30/21 aerosol inhaler (ProAir HFA) benzonatate 200 mg capsule 200 mg PO TID PRN #30 cap 08/30/21 Allergies Allergy/AdvReac Type Severity Reaction Status Date / Time No Known Allergies Allergy Verified 12/17/19 06:31 General Stated Complaint: Fever DEQUAN: 3 Review of Systems Constitutional Constitutional: Reports body ache(s), Reports chills, Reports fever(s), Reports headache(s) and Reports malaise ENT Ears, Nose, Mouth, and Throat: Denies ear discharge, Denies otalgia, Reports headache(s), Reports nasal congestion, Denies neck pain, Denies sore throat and Denies throat swelling Cardiovascular Cardiovascular: Denies chest pain and Denies dyspnea Respiratory Respiratory: Reports chest congestion, Reports cough, Denies dyspnea and Reports wheezing Gastrointestinal Gastrointestinal: Denies abdominal pain, Denies nausea and Denies vomiting Musculoskeletal Musculoskeletal: Denies joint swelling and Denies neck pain Integumentary/Breasts Skin/Breast: Denies rash Neurologic Neurologic: Reports headache(s) Allergic/Immunologic Allergic/Immunologic: Denies throat swelling and Reports wheezing PFSH All Active Problems Influenza A (Acute) Cholelithiases (Acute) Medical History Anxiety Surgical History History of placement of ear tubes History of tubal ligation S/P laparoscopic cholecystectomy 12/05/18, Dr Maryellen Diez, [facility] Social History Smoking/Tobacco Use Status: Current every day Tobacco Type: cigarettes Smoking risk assessment performed?: Yes Alcohol Intake: current Alcohol Intake frequency: holidays/special occasions only Drug use: Occasionally Substance use type: marijuana Do you feel safe at home: Yes Do you feel safe in your relationship?: Yes Exam Const General: cooperative, comfortable, no acute distress and ill appearing acutely Orientation: alert and awake [facility] [place] Head: normal to inspection, normocephalic and atraumatic Ears: hearing grossly normal bilaterally General nose exam: external nose normal Face and sinus: no erythema Mouth: oral mucosae normal, no muffled voice and no trismus Throat: posterior oropharynx normal Neck Neck: normal visual inspection, full ROM, no meningeal signs, trachea midline and supple Resp Effort & Inspection: normal respiratory effort, able to speak in complete sentences and cough Quality of cough: dry Auscultation: clear to auscultation bilaterally Cardio Rate: tachycardic Rhythm: regular rhythm Heart Sounds: S1 normal, S2 normal, normal S1 and S2, no click, no gallops, no murmurs and no rubs Skin General skin exam: no rashes or lesions noted and dry skin (warm) Neuro General: patient alert, patient awake, patient oriented x3, gait normal and moves all extremities Cognition: normal cognition Speech: speech normal Course Vital Signs Vital signs: Vital Signs Temperature 36.9 C 08/30/21 20:25 Pulse 109 H 08/30/21 20:25 Respiratory Rate 18 08/30/21 20:25 Blood Pressure 118/94 H 08/30/21 20:25 Pulse Oximetry 98 08/30/21 20:25 Temperature 36.9 C 08/30/21 20:25 Temperature Source Oral 08/30/21 20:25 Pulse 94 H 08/30/21 20:47 Respiratory Rate 20 08/30/21 20:47 Respiratory Effort Short of Breath 08/30/21 20:32 Blood Pressure 118/94 H 08/30/21 20:25 Pulse Oximetry 98 08/30/21 20:47 Oxygen Delivery Method Room Air 08/30/21 20:47 Oxygen Flow Rate 0 08/30/21 20:47 Pain Level 7 08/30/21 20:25 Lab/Test Results Lab/Test Results: Laboratory Tests Range/Units 08/30/21 08/30/21 08/30/21 20:45 20:45 20:45 WBC (4.4-10.8) 10^3/uL 2.24 L RBC (3.93-5.22) 10^6/uL 5.46 H Hgb (11.2-15.7) g/dL 15.4 Hct (36.0-46.0) % 46.9 H MCV (80-95) fL 85.9 MCH (27.0-33.0) pg 28.2 MCHC (32.0-36.0) % 32.8 RDW (11.7-14.6) % 12.5 Plt Count (130-400) 10^3/uL 197 MPV (8.0-11.0) fL 9.5 Immature Gran % 0.4 Neutrophils % 43.5 Lymphocytes % 38.8 Monocytes % 16.5 Eosinophils % 0.4 Basophils % 0.4 Nucleated RBC % % 0 Absolute Neutrophils (1.2-6.7) 10^3/uL 0.97 L Absolute Lymphocytes (1.2-3.4) 10^3/uL 0.87 L Absolute Monocytes (0.1-0.8) 10^3/uL 0.37 Absolute Eosinophils (0.0-0.7) 10^3/uL 0.01 Absolute Basophils (0.0-0.2) 10^3/uL 0.01 RBC Morphology Normal VBG Lactate (0.6-1.4) mmol/L 1.1 Sodium (136-145) mmol/L 135 L Potassium (3.5-5.1) mmol/L 3.4 L Chloride (98-107) mmol/L 98 Carbon Dioxide (21.0-32.0) mmol/L 23.1 Anion Gap (3-11) mmol/L 13.9 H BUN (7-18) mg/dL 10 Creatinine (0.55-1.02) mg/dL 0.9 Estimated GFR/1.73 m2 (mL/min/1.73m2) >= 60.00 Glucose (74-106) mg/dL 105 Calcium (8.5-10.1) mg/dL 8.9 Magnesium (1.8-2.4) mg/dL 2.1 Total Bilirubin (0.2-1.0) mg/dL 0.2 AST (15-37) U/L 27 ALT (14-59) U/L 31 Alkaline Phosphatase (46-116) U/L 93 Total Protein (6.4-8.2) g/dL 8.6 H Albumin (3.4-5.0) g/dL 4.4
[2021-08-30 21:41] LABS: COVID-19 PCR Negative (Negative); Influenza A PCR Positive (Negative); Influenza B PCR Negative (Negative); RSV PCR Negative (Negative)
--- NOTE | 2021-08-30 22:13 | DI.VRAD_ITS ---
PROCEDURE INFORMATION: Exam: XR Chest Exam date and time: 08/30/2021 21:22 Age: 26 years old Clinical indication: Other: Cough TECHNIQUE: Imaging protocol: XR of the chest. Views: 1 view. COMPARISON: CR XR CHEST 2V PA LATERAL 11/29/2018 08:30 FINDINGS: Lungs: Mild hyperinflation without airspace consolidation. Pleural spaces: No pleural effusion. No pneumothorax. Heart/Mediastinum: No cardiomegaly. Bones/joints: No acute fracture. IMPRESSION: Mild hyperinflation without airspace consolidation. Dictated and Authenticated by: Philomena Miller MD. Ordering:VISH Alex MD
== END 2021-08-30 22:32 | disposition home or self-care (01) ==
PROVIDERS: Emergency Provider Nurse Practitioner Family; PCP Internal Medicine
DX: J10.1 Influenza due to other identified influenza virus with other respiratory manifestations (principal); R05.1 Acute cough; R50.9 Fever, unspecified
CPT/HCPCS: 36415; 80053; 87637; 94640; 96361; 96365; 99284; 71045; 83605; 83735; 85025; J0131; J7620

== ENCOUNTER 2022-01-24 20:55 | Emergency (ER) | payer MEDICAID, SELFPAY ==
--- NOTE | 2022-01-24 21:45 | DI.RAD_ITS ---
Exam(s) XR ANKLE RT COMPLETE EXAM: XR ANKLE RT COMPLETE z CLINICAL HISTORY: fall. TECHNIQUE: 2D digital imaging was performed. Three views. COMPARISON: CR,XR XR PORTABLE CHEST AP from 08/30/2021 FINDINGS: BONES: No acute fracture is present. No bony destructive lesion is seen. JOINTS: The ankle mortise is normally aligned. SOFT TISSUE: Soft tissue swelling around the malleoli. IMPRESSION: Soft tissue swelling. DATA REPOSITORY: RADIATION DOSE DELIVERED:
[2022-01-24 21:46] VITALS: BP 115/76; PULSE 84; RESP 18; TEMP 36.6; O2SAT 98
[2022-01-24] MEDS: Ibuprofen 600 MG TAB PO (22:00)
--- NOTE | 2022-01-24 22:07 | DI.VRAD_ITS ---
PROCEDURE INFORMATION: Exam: XR Right Ankle Exam date and time: 01/24/2022 10:02 PM Age: 26 years old Clinical indication: Other: Fall TECHNIQUE: Imaging protocol: Radiologic exam of the Right ankle. Views: 3 or more views. COMPARISON: No relevant prior studies available. FINDINGS: Bones/joints: No evidence of acute fracture or subluxation of the right ankle. No aggressive osseous lesion is identified. Soft tissues: Circumferential soft tissue swelling of the right ankle. IMPRESSION: Circumferential soft tissue swelling of the right ankle without demonstration of acute fracture or subluxation. Dictated and Authenticated by: Navi Moreno MD. Ordering:VISH Alex MD
--- NOTE | 2022-01-24 22:21 | ED.GENADUL_ITS ---
Discharge Plan Disposition Patient Disposition: HOME Condition: Stable Discharge Details Clinical Impression: Right ankle sprain Primary Care Provider: Navi Bello ED Provider: Isai Ro Home Meds and New Rx's Prescriptions: No Action No Known Home Meds Discharge Instructions Instructions: Ankle Sprain (ED) Additional Instructions: You may continue to take [id number] acetaminophen or ibuprofen as needed for ankle pain. Please apply ice to help with swelling and you may slowly advance weightbearing activities as tolerated. If you are not improving over the next 1 to 2 weeks please follow-up with orthopedics or your primary care provider for reassessment. Referrals: Navi Bello [Primary Care Provider] - Discharge Data Discharge Date/Time-TO BE ENTERED AT DEPARTURE: 01/24/22 22:47 Medical Decision Making Patient presenting to the emergency department for chief complaint of right ankle pain. Patient reports fall yesterday evening and evaluated at another emergency department but mainly had complaint of left ankle pain at that time. Since being discharged she started having right ankle pain and then rolled right ankle due to having a left walking boot on. Physical exam shows tenderness to right ankle mainly to the lateral aspect. We will plan on performing radiological imaging due to patient stating difficulty weightbearing after secondary injury. Review of radiological imaging and radiologist interpretation shows no acute si gns of fracture. Given that patient is already in a walking boot on the left will place patient in a lace up ankle brace which she is agreeable to this plan of care as well. Conservative management was discussed along with return and follow-up precautions. After discussion of diagnosis and plan of care patient has no further needs, questions, or concerns and states clear understanding to return to the emergency department for any worsening symptoms. This documentation was generated using [employer],SLation system, please disregard any oddities of phrase or misspellings. Imaging Data Radiologic Study: Attestation: I personally reviewed and interpreted this imaging study as follows: Imaging: X-Ray Radiologist's impression: FINDINGS: Bones/joints: No evidence of acute fracture or subluxation of the right ankle. No aggressive osseous lesion is identified. Soft tissues: Circumferential soft tissue swelling of the right ankle. IMPRESSION: Circumferential soft tissue swelling of the right ankle without demonstration of acute fracture or subluxation. HPI General Mode of arrival: wheelchair . Date/Time Provider Initiated Documentation: 01/24/22 21:49 . Limitations to Documentation: no limitations . Information obtained by: patient and RN notes reviewed . History of Present Illness 26 year old F presents to the emergency department with the chief complaint of Right ankle injury, described as moderate and severe, with intensity rated at 8. Quality is described as sharp, and is localized to the right and lower extremity. Patient reports no radiation. Patient started experiencing this day(s) (1) and it has been constant. No relieving factors improve symptom(s), Movement worsens symptoms . Patient notes no other symptoms.. Patient did receive the following treatments prior to arrival, NSAID Related Data Home Medications Medication Instructions Recorded Confirmed Unknown [No Known Home Meds] 01/24/22 01/24/22 Allergies Allergy/AdvReac Type Severity Reaction Status Date / Time No Known Allergies Allergy Verified 12/17/19 06:31 General Stated Complaint: Orthopedic DEQUAN: 4 Review of Systems Narrative: 6 systems reviewed and unremarkable except what is marked below. Musculoskeletal Musculoskeletal: Reports as per HPI, Reports arthralgias, Reports joint swelling and Reports limited range of motion Integumentary/Breasts Skin/Breast: Denies wounds Neurologic Neurologic: Denies paresthesias PFSH All Active Problems (Updated 01/24/22 @ 22:23 by Isai Ro NP) Right ankle sprain (Acute) Cholelithiases (Acute) Medical History Anxiety Surgical History History of placement of ear tubes History of tubal ligation S/P laparoscopic cholecystectomy 12/05/18, Dr Maryellen Diez, [facility] Social History Smoking/Tobacco Use Status: Current every day Tobacco Type: cigarettes Smoking risk assessment performed?: Yes Alcohol Intake: current Alcohol Intake frequency: holidays/special occasions only Drug use: Occasionally Substance use type: marijuana Do you feel safe at home: Yes Do you feel safe in your relationship?: Yes Exam Const General: cooperative, no acute distress and not ill appearing Orientation: alert, awake and oriented x3 Resp Effort & Inspection: normal respiratory effort, able to speak in complete se ntences and no respiratory distress Cardio Rate: regular rate Rhythm: regular rhythm Pulses: normal peripheral pulses Skin General skin exam: no rashes or lesions noted Neuro General: patient alert, patient awake, patient oriented x3, moves all extremities and no focal motor deficits Sensory Exam: no sensory deficits noted Extrem Right lower extremity: lower leg Details: no tenderness, no localized swelling and no ecchymosis and ankle Details: tenderness Location: of the lateral malleolus, of the medial malleolus and anteriorly, swelling Details: laterally and abnormal ROM Details: pain with active ROM and pain with passive ROM; no abrasions, no lacerations and no ecchymosis Left lower extremity: abnormal to inspection (Patient in a walking boot) Course Vital Signs Vital signs: Vital Signs Temperature 36.6 C 01/24/22 21:46 Pulse 84 01/24/22 21:46 Respiratory Rate 18 01/24/22 21:46 Blood Pressure 115/76 01/24/22 21:46 Pulse Oximetry 98 01/24/22 21:46 Temperature 36.6 C 01/24/22 21:46 Temperature Source Temporal Artery Scan 01/24/22 21:46 Pulse 84 01/24/22 21:46 Respiratory Rate 18 01/24/22 21:46 Respiratory Effort 01/24/22 21:50 Blood Pressure 115/76 01/24/22 21:46 Pulse Oximetry 98 01/24/22 21:46 Pain Level 8 01/24/22 21:46
== END 2022-01-24 22:47 | disposition home or self-care (01) ==
PROVIDERS: Emergency Provider Nurse Practitioner Family; PCP Internal Medicine
DX: S93.401A Sprain of unspecified ligament of right ankle, initial encounter (principal); F17.210 Nicotine dependence, cigarettes, uncomplicated; W19.XXXA Unspecified fall, initial encounter; X50.1XXA Overexertion from prolonged static or awkward postures, initial encounter
CPT/HCPCS: 99283; 73610; 99282

== ENCOUNTER 2024-07-26 17:28 | Emergency (ER) | payer MEDICAID, SELFPAY ==
[2024-07-26 17:30] VITALS: BP 152/60; PULSE 112; RESP 16; TEMP 36.4; O2SAT 98
--- NOTE | 2024-07-26 17:52 | ED.GENADUL_ITS ---
Discharge Plan Disposition Patient Disposition: Home Condition: Stable Discharge Details Clinical Impression: Migraine syndrome Primary Care Provider: Navi Bello ED Provider: Og Talavera Home Meds and New Rx's Prescriptions: No Action No Known Home Meds Discharge Instructions Instructions: Headache, Adult ED Additional Instructions: You were seen in the emergency department for likely migraine with visual changes as an aura preceding her migraine. When you have feeling migraine coming on, please take 1000 mg of Tylenol, 400 mg of ibuprofen, you may take a 25 mg or 50 mg Benadryl tablet, try to drink 3 to 4 glasses of water, and take some caffeine, please return for any neurologic changes or headaches not responding to medications, placed you on primary care follow-up list to establish care in the area. Referrals: [facility] [Provider Group] [facility] [Provider Group] Navi Bello [Primary Care Provider] - Discharge Data Discharge Date/Time-TO BE ENTERED AT DEPARTURE: 07/26/24 22:12 HPI General Date/Time Provider Initiated Documentation: 07/26/24 17:37 . HPI Narrative: 29 year-old female presents to ED today by POV/ambulating with a chief complaint of ochoa dot in her vision for 90 minutes around 1230 today, then again briefly this afternoon with L occular headache. Quality described as ochoa dot in central vision that resolved, L occular pain, face feeling tight, denies numbness/tingling/weakness, denies facial droop or slurred speech, no radiation to chest pain, shortness of breath pulsatile tinnitus, vision loss, worst headache of her life. Severity is described as moderate. Palliating factors include nothing attempted- self-resolved. Provoking factors include nothing specific, was driving at time of onset earlier. Events leading up to the inciden t/Associated Symptoms: Reports FHx of stroke in mother in her fourties. Patient not anticoagulated. Related Data Home Medications ?Medication ?Instructions ?Recorded ?Confirmed Unknown [No Known Home Meds] 01/24/22 07/26/24 Allergies Allergy/AdvReac Type Severity Reaction Status Date / Time No Known Allergies Allergy Verified 07/26/24 17:32 General Stated Complaint: CVA/TIA EDQUAN: 3 Review of Systems All systems reviewed & are unremarkable except as noted in HPI and below Exam Narrative Exam Narrative: GENERAL APPEARANCE: Well-nourished, non-toxic, awake and alert, atraumatic, no acute distress. SKIN: Warm, pink, dry, intact, without rashes/lesions/ulcerations. HEAD: Normocephalic, atraumatic, normal hair distribution for gender/age. EYES: Normal conjunctiva, no exudates on lids/lashes, EOMs intact without nystagmus, visual jenkins intact, vision grossly intact ENT: Nares patent, no circumoral cyanosis, no facial swelling NECK: Supple, trachea midline, painless cervical ROM. LUNGS/CHEST: Lungs CTA bilaterally, non-labored respirations, normal A/P diameter, symmetrical expansion, no chest wall deformity HEART (CV/PV): Regular rate and rhythm without murmur, no peripheral edema, no JVD. ABDOMEN: Soft, non-distended, no guarding. MSK: Normal ROM, no swelling/deformity to bilateral UEs or LEs, moving all extremities without weakness, no cyanosis, spine midline without tenderness, normal curvature. NEURO: Mental Status AAOx4 - alert to person, place, time, events No facial droop, no forehead involvement, no dysmetria with cerebellar testing Motor: No focal weakness - strength 5/5 in bilateral UEs and LEs, proximal and distal, symmetric. Sensory: sensation intact to light touch globally. Gait normal: patient ambulated without ataxia into ED room. PSYCH: euthymic, cooperative, pleasant, appropriate speech Course Vital Signs Vital signs: Vital Signs Temperature 36.4 C L 07/26/24 17:30 Pulse 112 H 07/26/24 17:30 Respiratory Rate 16 07/26/24 17:30 Blood Pressure 152/60 H 07/26/24 17:30 Pulse Oximetry 98 07/26/24 17:30 Temperature 36.4 C L 07/26/24 17:30 Pulse 112 H 07/26/24 17:30 Respiratory Rate 16 07/26/24 17:30 Blood Pressure 152/60 H 07/26/24 17:30 Pulse Oximetry 98 07/26/24 17:30 Pain Level 0 07/26/24 17:30 Medical Decision Making This dictation utilizes [id number] dictation software and may contain unedited grammatical errors. 29 year-old female presents to ED today by POV/ambulating with a chief complaint of ochoa dot in her vision for 90 minutes around 1230 today, then again briefly this afternoon with L occular headache. Quality described as ochoa dot in central vision that resolved, L occular pain, face feeling tight, denies numbness/tingling/weakness, denies facial droop or slurred speech, no radiation to chest pain, shortness of breath pulsatile tinnitus, vision loss, worst headache of her life. Severity is described as moderate. Palliating factors include nothing attempted- self-resolved. Provoking factors include nothing specific, was driving at time of onset earlier. Events leading up to the incident/Associated Symptoms: Reports FHx of stroke in mother in her fourties. Patients' medical history: History of headaches. Family and social history: Otherwise noncontributory from previously stated. Pertinent exam findings / vital signs include neuro intact, vision intact, visual jenkins intact, no weakness, no symmetric, EOMs. Differential / pathologies of concern include migraine syndrome, migraine with aura, less likely CVA or TIA, unlikely vasculitis. Diagnostic studies of: -CBC, CMP, troponin, TSH, EKG, CTA of brain and neck. -Laboratory studies completely benign -EKG without ischemic changes -CTA shows no acute abnormality Interventions of: -Patient is outside window for tPA, not likely the diagnosis in this case of TIA or stroke, teleneuro was consulted they agree this is likely migraine with aura. ED Course/Assessment/Plan: 29-year-old female seen with likely migraine syndrome with a left-sided headache with some aura visual symptoms of great out that self resolved, patient is outside window for tPA with greater than 4.5-hour onset, teleneuro agrees that this is likely migraine syndrome, she is otherwise a healthy young female without any known clotting disorders or risk factors for stroke, counseled her on headache medications and strict follow-up with her primary care provider, return for any neurologic changes or return of neurologic symptoms. Findings not consistent with CVA, TIA, infection, vasculitis. Disposition of Migraine Syndrome. Patient verbalized understanding of the plan and return to ED criteria and engaged in shared decision making. Medical Records Medical records reviewed: Yes I reviewed the patient's medical records. Imaging Data Radiologic Study: Attestation: I personally reviewed and interpreted this imaging study as follows: Imaging: CT Scan Radiologist's impression: Exam: CTA Head Without And With Contrast, Arteriography Exam date and time: 07/26/2024 19:14 Age: 29 years old Clinical indication: Other: Visual change, facial tingling 1230 today TECHNIQUE: Imaging protocol: Computed tomographic angiography of the head without and with contrast. Exam focused on the arteries. 3D rendering (Not supervised by radiologist): MIP and/or 3D reconstructed images were created by the technologist. Contrast material: OMNIPAQUE 350; Contrast volume: 70 ml; Contrast route: INTRAVENOUS (IV); COMPARISON: No relevant prior studies available. FINDINGS: ANTERIOR CIRCULATION: Right internal carotid artery: Intracranial segment is patent with no significant stenosis. No aneurysm. Right middle cerebral artery: No occlusion or significant stenosis. No aneurysm. Right anterior cerebral artery: No occlusion or significant stenosis. No aneurysm. Left internal carotid artery: Intracranial segment is patent with no significant stenosis. No aneurysm. Left middle cerebral artery: No occlusion or significant stenosis. No aneurysm. Left anterior cerebral artery: No occlusion or significant stenosis. No aneurysm. POSTERIOR CIRCULATION: Right vertebral artery: No occlusion or significant stenosis. No aneurysm. Left vertebral artery: No occlusion or significant stenosis. No aneurysm. Basilar artery: No occlusion or significant stenosis. No aneurysm. Right posterior cerebral artery: No occlusion or significant stenosis. No aneurysm. Left posterior cerebral artery: No occlusion or significant stenosis. No aneurysm. HEAD: Brain: No mass, mass effect, or midline shift. Cerebral ventricles: . No ventriculomegaly. Bones: . No acute fracture. Paranasal sinuses: . No fluid levels. Mastoid air cells: . No mastoid effusion. Soft tissues: Unremarkable. IMPRESSION: No acute arterial pathology. No large vessel occlusion. PROCEDURE INFORMATION: Exam: CTA Neck Without And With Contrast Exam date and time: 07/26/2024 19:14 Age: 29 years old Clinical indication: Other: Visual change, facial tingling 1230 today TECHNIQUE: Imaging protocol: Computed tomographic angiography of the neck without and with contrast. Exam focused on the cervical segments of the vasculature. 3D rendering (Not supervised by radiologist): MIP and/or 3D reconstructed images were created by the technologist. Contrast material: OMNIPAQUE 350; Contrast volume: 70 ml; Contrast route: INTRAVENOUS (IV); COMPARISON: CR XR PORTABLE CHEST AP 08/30/2021 21:22 FINDINGS: Tubes, catheters and devices: The patient is edentulous and has two mandibular metallic implants. Right common carotid artery: No significant stenosis. No dissection or occlusion. Right internal carotid artery: Extracranial segment is patent with no significant stenosis. No dissection or occlusion. Right external carotid artery: No occlusion or significant stenosis. Left common carotid artery: No significant stenosis. No dissection or occlusion. Left internal carotid artery: Extracranial segment is patent with no significant stenosis. No dissection or occlusion. Left external carotid artery: No occlusion or significant stenosis. Right vertebral artery: No significant stenosis. No dissection or occlusion. Left vertebral artery: No significant stenosis. No dissection or occlusion. Soft tissues: No significant soft tissue swelling. Bones/joints: Reversal of the normal cervical lordosis. No acute fracture or subluxation. IMPRESSION: No acute arterial pathology. Patent carotid and vertebral system bilaterally. Dictated and Authenticated by: Philomena Miller MD. Lab Data Lab results reviewed: Yes I reviewed the patient's lab results. Labs: Laboratory Tests Range/Units 07/26/24 18:18 WBC (4.4-10.8) 10^3/uL 7.00 RBC (3.93-5.22) 10^6/uL 4.98 Hgb (11.2-15.7) g/dL 15.0 Hct (36.0-46.0) % 43.4 MCV (80-95) fL 87 MCH (27.0-33.0) pg 30.1 MCHC (32.0-36.0) % 34.6 RDW (11.7-14.6) % 12.6 Plt Count (130-400) 10^3/uL 284 MPV (8.0-11.0) fL 9.0 Immature Gran % % 0.3 Neutrophils % % 63.8 Lymphocytes % % 27.3 Monocytes % % 6.1 Eosinophils % % 2.1 Basophils % % 0.4 Nucleated RBC % (0.0-0.3) % 0.0 Absolute Neutrophils (1.2-6.7) 10^3/uL 4.46 Absolute Lymphocytes (1.2-3.4) 10^3/uL 1.91 Absolute Monocytes (0.1-0.8) 10^3/uL 0.43 Absolute Eosinophils (0.0-0.7) 10^3/uL 0.15 Absolute Basophils (0.0-0.2) 10^3/uL 0.03 Sodium (136-145) mmol/L 138 Potassium (3.5-5.1) mmol/L 4.0 Chloride (98-107) mmol/L 103 Carbon Dioxide (21.0-32.0) mmol/L 25.6 Anion Gap (3-11) mmol/L 9.4 BUN (7-18) mg/dL 13 Creatinine (0.55-1.02) mg/dL 0.9 Est GFR (CKD-EPI 2020) (mL/min/1.73m2) 88.20 Glucose (74-106) mg/dL 105 Calcium (8.5-10.1) mg/dL 9.4 Total Bilirubin (0.2-1.0) mg/dL 0.18 L AST (15-37) U/L 14 L ALT (14-59) U/L 28 Alkaline Phosphatase (46-116) U/L 78 Troponin I (<or=51) ng/L 5 Total Protein (6.4-8.2) g/dL 7.7 Albumin (3.4-5.0) g/dL 4.2 TSH (0.36-3.74) uIU/mL 1.47 Quality:[facility] Health Related Social Needs: No Data to Display PFSH All Active Problems (Updated 07/26/24 @ 22:03 by HUMBERTO Gastelum) Migraine syndrome (Acute) Cholelithiases (Acute) Medical History Anxiety Surgical History History of placement of ear tubes History of tubal ligation S/P laparoscopic cholecystectomy 12/05/18, Dr Maryellen Diez, [facility] Social History Smoking/Tobacco Use Status: Current every day Tobacco Type: cigarettes Smoking risk assessment performed?: Yes Alcohol Intake: current Alcohol Intake frequency: holidays/special occasions only Drug use: Occasionally Substance use type: marijuana Do you feel safe at home: Yes Do you feel safe in your relationship?: Yes
--- NOTE | 2024-07-26 18:00 | DI.CT_ITS ---
Exam(s) CT BRAIN NECK CTA EXAM: CT BRAIN NECK CTA CLINICAL HISTORY: visual change, facial tingling 1230 today. TECHNIQUE: Imaging Protocol: Axial CT angiography was performed with multi-slice acquisition and mu lti-planar and/or 3D reconstructions. CONTRAST MATERIAL: Intravenous: Omnipaque 350 Contrast volume:structured data in ml COMPARISON: No exams were available for comparison FINDINGS: CTA Neck W: Aortic arch anatomy: The aortic arch anatomy is conventional and there is no significant stenosis at the origin of the great vessels off of the aortic arch. No intimal flap evident. Anterior circulation: Both common carotid arteries ascend with normal luminal diameters. At the level the carotid bulbs and proximal internal carotid arteries there is no significant plaque and no significant stenosis. No dissection evident Posterior circulation: Both vertebral arteries originate in conventional fashion off of the subclavian arteries and there is no obvious stenosis at the origin of the vertebral arteries. Both vertebral arteries exhibit normal luminal diameters within the foramen transversarium. Both vertebral arteries contribute to the formation of the basilar artery at the skull base. CTA Brain W: Anterior circulation: Both internal carotid arteries are patent in the skull base-carotid canals as well as within the cave rnous sinuses. The supraclinoid aspects of the ICAs are patent. Both A1 segments are patent as are the anterior cer ebral arteries and there is no evidence of aneurysm at the level of the anterior communicating artery . Both middle cerebral arteries are patent with no evidence of significant stenosis nor intraluminal th rombus. There also no aneurysms of these vessels. Posterior circulation: The basilar artery ascends in the midline. Distally it gives off patent bilateral superior cerebella r arteries. Above this level the basilar artery terminates as patent bilateral posterior cerebral arteries. There is no evidence of aneurysm at the tip of the basilar artery nor elsewhere in the [id number] is. CT BRAIN: There is no evidence of intracranial hemorrhage, mass effect, or shift of midline structures. There are no extra-axial fluid collections. Ventricles are not enlarged or shifted. There are no ring enh ancing lesions in the brain and no abnormal meningeal enhancement. IMPRESSION: 1. Patent carotid arteries in the neck. No hemodynamically significant stenosis. No dissection 2. Patent vertebral arteries. No significant stenosis nor dissection. 3. Patent intracranial arteries. 4. No acute intracranial findings. Also no ring enhancing lesions in the brain nor abnormal meningea l enhancement. RADIATION DOSE DELIVERED: 2,176.78mGy.cm Total DLP DATA REPOSITORY: All CT scans at this facility are submitted to the National Radiology Data Registry (NRDR) Dose Index Registry (DIR) with the [employer] (A[employer]). RADIATION OPTIMIZATION: All CT scans at this facility use at least one of these dose optimization te chniques: automated exposure control; mA and/or kV adjustment per patient size (includes targeted exa ms where dose is matched to clinical indication); or iterative reconstruction.
--- NOTE | 2024-07-26 18:00 | RT.EKG_ITS ---
APPROVED REPORT Exam: Resting ECG Reason for Exam: baseline/screening Patient Location: E HR:87 bpm ECG Measurements Heart Rate 87 AXIS SC 118 P 46 QRSd 67 QRS 53 QT 335 T 33 QTc 404 Conclusion Sinus rhythm...normal P axis, V-rate 60- 99 Sinus Rhythm. No prior for comparison. WD
[2024-07-26 18:26] LABS: Abs Immature Grans 0.02 10^3/uL (0.0-0.06); Absolute Basophil Count 0.03 10^3/uL (0.0-0.2); Absolute Eosinophil Count 0.15 10^3/uL (0.0-0.7); Absolute Lymphocyte Count 1.91 10^3/uL (1.2-3.4); Absolute Monocyte Count 0.43 10^3/uL (0.1-0.8); Absolute Neutrophil Count 4.46 10^3/uL (1.2-6.7); Basophils % 0.4 %; Eosinophils % 2.1 %; HCT 43.4 % (36.0-46.0); Immature Grans % 0.3 %; Lymphocytes % 27.3 %; MCH 30.1 pg (27.0-33.0); MCHC 34.6 % (32.0-36.0); MCV 87 fL (80-95); Monocytes % 6.1 %; Neutrophils % 63.8 %; Platelet Count 284 10^3/uL (130-400); RBC 4.98 10^6/uL (3.93-5.22); RDW 12.6 % (11.7-14.6); RDW-SD 40.2 fL
[2024-07-26 18:50] LABS: ALT 28 U/L (14-59); AST 14 U/L (15-37); Albumin 4.2 g/dL (3.4-5.0); Alkaline Phosphatase 78 U/L (46-116); Anion Gap 9.4 mmol/L (3-11); BUN 13 mg/dL (7-18); Bilirubin, Total 0.18 mg/dL (0.2-1.0); CO2 25.6 mmol/L (21.0-32.0); CREATININE 0.9 mg/dL (0.55-1.02); Calcium 9.4 mg/dL (8.5-10.1); Chloride 103 mmol/L (98-107); Glucose 105 mg/dL (74-106); Sodium 138 mmol/L (136-145); TSH (W/Ref FT4) 1.47 uIU/mL (0.36-3.74); Total Protein 7.7 g/dL (6.4-8.2); Troponin I 5 ng/L (<or=51)
[2024-07-26] MEDS: Omnipaque 350 MG/ML 100 ML BTL 70 ML IJ (19:15)
[2024-07-26] MEDS: Normal Saline - Diluent 50 ML VIAL IJ (19:16)
--- NOTE | 2024-07-26 20:10 | DI.VRAD_ITS ---
PROCEDURE INFORMATION: Exam: CTA Head Without And With Contrast, Arteriography Exam date and time: 07/26/2024 19:14 Age: 29 years old Clinical indication: Other: Visual change, facial tingling 1229 TECHNIQUE: Imaging protocol: Computed tomographic angiography of the head without and with contrast. Exam focused on the arteries. 3D rendering (Not supervised by radiologist): MIP and/or 3D reconstructed images were created by the technologist. Contrast material: OMNIPAQUE 350; Contrast volume: 70 ml; Contrast route: INTRAVENOUS (IV); COMPARISON: No relevant prior studies available. FINDINGS: ANTERIOR CIRCULATION: Right internal carotid artery: Intracranial segment is patent with no significant stenosis. No aneurysm. Right middle cerebral artery: No occlusion or significant stenosis. No aneurysm. Right anterior cerebral artery: No occlusion or significant stenosis. No aneurysm. Left internal carotid artery: Intracranial segment is patent with no significant stenosis. No aneurysm. Left middle cerebral artery: No occlusion or significant stenosis. No aneurysm. Left anterior cerebral artery: No occlusion or significant stenosis. No aneurysm. POSTERIOR CIRCULATION: Right vertebral artery: No occlusion or significant stenosis. No aneurysm. Left vertebral artery: No occlusion or significant stenosis. No aneurysm. Basilar artery: No occlusion or significant stenosis. No aneurysm. Right posterior cerebral artery: No occlusion or significant stenosis. No aneurysm. Left posterior cerebral artery: No occlusion or significant stenosis. No aneurysm. HEAD: Brain: No mass, mass effect, or midline shift. Cerebral ventricles: . No ventriculomegaly. Bones: . No acute fracture. Paranasal sinuses: . No fluid levels. Mastoid air cells: . No mastoid effusion. Soft tissues: Unremarkable. IMPRESSION: No acute arterial pathology. No large vessel occlusion. PROCEDURE INFORMATION: Exam: CTA Neck Without And With Contrast Exam date and time: 07/26/2024 19:14 Age: 29 years old Clinical indication: Other: Visual change, facial tingling 1229 TECHNIQUE: Imaging protocol: Computed tomographic angiography of the neck without and with contrast. Exam focused on the cervical segments of the vasculature. 3D rendering (Not supervised by radiologist): MIP and/or 3D reconstructed images were created by the technologist. Contrast material: OMNIPAQUE 350; Contrast volume: 70 ml; Contrast route: INTRAVENOUS (IV); COMPARISON: CR XR PORTABLE CHEST AP 08/30/2021 21:22 FINDINGS: Tubes, catheters and devices: The patient is edentulous and has two mandibular metallic implants. Right common carotid artery: No significant stenosis. No dissection or occlusion. Right internal carotid artery: Extracranial segment is patent with no significant stenosis. No dissection or occlusion. Right external carotid artery: No occlusion or significant stenosis. Left common carotid artery: No significant stenosis. No dissection or occlusion. Left internal carotid artery: Extracranial segment is patent with no significant stenosis. No dissection or occlusion. Left external carotid artery: No occlusion or significant stenosis. Right vertebral artery: No significant stenosis. No dissection or occlusion. Left vertebral artery: No significant stenosis. No dissection or occlusion. Soft tissues: No significant soft tissue swelling. Bones/joints: Reversal of the normal cervical lordosis. No acute fracture or subluxation. IMPRESSION: No acute arterial pathology. Patent carotid and vertebral system bilaterally. Dictated and Authenticated by: Philomena Miller MD. Orderin Sadaf Foley MD
[2024-07-26 22:12] VITALS: BP 119/76; PULSE 84; RESP 22; TEMP 36.6; O2SAT 99
== END 2024-07-26 22:12 | disposition home or self-care (01) ==
PROVIDERS: Emergency Provider Physician Assistant; PCP Internal Medicine
DX: G43.809 Other migraine, not intractable, without status migrainosus (principal); G44.89 Other headache syndrome; F17.210 Nicotine dependence, cigarettes, uncomplicated; Z82.3 Family history of stroke
CPT/HCPCS: 36415; 70496; 70498; 80053; 81025; 93005; 99285; 84443; 84484; 85025; 93010; 99284; J3490